=== PATIENT | female | born 1935 | race Caucasian/White ===

== ENCOUNTER 2016-08-18 08:09 | Observation (INO) ==
[2016-08-18 08:49] LABS: Basophils # 0.1 K/mcL (0.0-0.2); Basophils % 0.6 %; Eosinophils # 0.1 K/mcL (0.0-0.6); Eosinophils % 1.4 %; Hematocrit 35.3 % (35.3-44.9); Hemoglobin 11.9 g/dL (11.5-15.4); Immature Granulocytes % 0.3 % (0-4); Mean Corpuscular HGB Conc 33.7 g/dL (31.6-35.5); Mean Corpuscular Volume 94.9 fL (83.0-100.0); Mean Platelet Volume 10.1 fL (9.4-12.4); Monocytes # 0.6 K/mcL (0.0-1.3); Monocytes % 7.9 %; Neutrophils # 5.1 K/mcL (1.6-8.9); Platelet Count 204 K/mcL (140-400); Red Blood Count 3.72 M/mcL (3.82-4.97); Red Cell Distribution Width 12.9 % (11.5-14.5); Segmented Neutrophils % 64.8 %
[2016-08-18 09:03] LABS: BUN/Creatinine Ratio 25 (6-26); Blood Urea Nitrogen 19 mg/dL (7-20); Calcium 9.6 mg/dL (8.6-10.8); Carbon Dioxide 29 mEq/L (19-29); Chloride 103 mEq/L (98-109); Glucose 102 mg/dL (70-99); Osmolality,Calculated 290 (280-300); Sodium 139 mEq/L (136-145); eGFR For African Americans > 60 (> 60); eGFR For Non-African Americans > 60 (> 60)
[2016-08-18] MEDS ORDERED: Aspirin 325 MG TABLET PO ONE (09:19)
[2016-08-18] MEDS ORDERED: Nitroglycerin 1 INCH/GM PACKET TP ONE (09:19)
[2016-08-18 09:23] LABS: Prothrombin Time 11.1 Seconds (9.4-12.1)
[2016-08-18 09:26] LABS: Activated Partial Thrombo Time 33.5 Seconds (26.0-36.0)
--- NOTE | 2016-08-18 09:30 | Emergency Department Note ---
Disposition Clinical Impression: Chest pain Qualifiers: Chest pain type: chest pain due to myocardial ischemia Ischemic chest pain type : other angina pectoris type Qualified Code(s): I20.8 - Other forms of angina pectoris Disposition: Admitted As Inpatient Condition: Fair Referrals: Jena Roland CNP [Primary Care Provider] - Forms: ED Satisfaction Letter Time of Disposition: 09:35 Chest Pain HPI - General Chief Complaint: ED Chest Pain Stated Complaint: Tremendous Chest Pain/seen yesterday Time Seen by Provider: 08/18/16 08:21 Source: patient, family Limitations: no limitations Vital Signs Reviewed: Yes Nursing Notes Reviewed: Yes - History of Present Illness Pt complaint: chest pain Onset (ago): hour(s) Duration: intermittent Onset: during rest, during exertion Pain Location: substernal Severity: severe (Patient used the word "tremendous") Severity scale (1-10): 0 Quality: aching, heaviness Pain Radiation: LUE Improves with: nitroglycerin (Several times took nitroglycerin with alleviation of the discomfort only to have it return short time later) Worsens with: nothing Associated symptoms: Denies: nausea, vomiting, diaphoresis, dyspnea Treatments prior to arrival chest pain: nitroglycerin - Related Data Previous Rx's Medication Instructions Recorded Sulfamethoxazole/Trimeth DS 1 each PO BID #14 tablet 03/31/15 [Bactrim DS] Nitrofurantoin (BID) [Macrobid] 100 mg PO BID #14 capsule 04/12/15 Phenazopyridine [Pyridium] 100 mg PO TID #6 tablet 04/12/15 Allergies Allergy/AdvReac Type Severity Reaction Status Date / Time risperidone Allergy Chest Pain Verified 04/12/15 13:35 All systems ED: reviewed and negative except as stated. Constitutional: Denies: fever, chills ENT ED: Denies: ear pain, throat pain, congestion Cardiovascular: Reports: chest pain. Denies: palpitations Respiratory: Denies: cough, dyspnea Gastrointestinal: Denies: abdominal pain, nausea, vomiting Musculoskeletal: Denies: back pain Integumentary: Denies: rash Neurological: Reports: headache Chest Pain PMH - Past Medical History Medical history: Reports: diabetes, myocardial infarction, thyroid disease Surgical history: Reports: coronary bypass (CABG) Psychiatric history: Reports: anxiety, depression SHAREPOINT ADMINISTRATOR history: Reports: no SHAREPOINT ADMINISTRATOR history - Social History Smoking Status: Never smoker Alcohol use: Reports: none Drug use: Reports: none Physical Exam - General Limitations: no limitations General appearance: alert, in no apparent distress - Head Head exam: atraumatic, normocephalic - Eye Eye exam: Present: normal appearance, PERRL. Absent: scleral icterus, conjunctival injection - ENT ENT exam: normal exam, mucous membranes moist, TM's normal bilaterally - Neck Neck exam: Present: normal inspection, full ROM, trachea midline. Absent: meningismus - Chest Chest inspection: Present: normal inspection, symmetric chest wall rise. Absent : tenderness - Respiratory Respiratory exam: Present: normal lung sounds bilaterally. Absent: respiratory distress, wheezes - Cardiovascular Cardiovascular exam: Present: regular rate, normal rhythm, normal heart sounds - Abdominal Exam Abdominal exam: Present: soft, Non-Tender - Extremities Exam Extremities exam: Present: normal inspection, full ROM, pedal edema (Trace edema but no worse than usual according to patient). Absent: tenderness - Neurological Exam Neurological exam: Present: alert, oriented X3 - Psychiatric Psychiatric exam: Present: normal affect, normal mood - Skin Skin exam: Present: warm, dry. Absent: rash Course Course Narrative: Patient presents with a complaint of chest pain. Her story is concerning in that she has had several episodes of chest discomfort with radiation to the left arm that were alleviated by nitroglycerin. On arrival her EKG looks fine. At this point her labs are back. They are all negative. Chest x-ray was clear. However the story is concerning enough that she is to be admitted for crescendo angina. I will speak to the hospitalist. - Consultations Consultation #1: Dr. Wellington, hospitalist - I discussed case with the hospitalist including patient 's history and presentation and testing results and current condition. He is accepted the patient for permission to the hospitalist. She has a half an inch of Nitropaste and aspirin. She is pain-free at this time. Time: 09:32 Vital Signs Temperature 97.9 F 08/18/16 08:16 Pulse Rate 63 08/18/16 08:16 Respiratory Rate 16 08/18/16 08:16 Blood Pressure 162/87 08/18/16 08:16 O2 Sat by Pulse Oximetry 99 08/18/16 08:16 Temperature 97.9 F 08/18/16 08:16 Pulse Rate 63 08/18/16 08:47 Respiratory Rate 16 08/18/16 08:47 Blood Pressure 142/83 08/18/16 08:47 O2 Sat by Pulse Oximetry 99 08/18/16 08:47 Oxygen Delivery Oxygen Delivery Room Air Chest Pain - Medical Records Medical records reviewed: Yes I reviewed the patient's medical records. - Lab Data Lab results reviewed: Yes I reviewed the patient's lab results. Result diagrams: 08/18/16 08:32 08/18/16 08:32 Lab Results 08/18/16 08/18/16 08/18/16 Range/Units 08:32 08:32 08:32 WBC 7.9 (4.3-11.1) K/mcL RBC 3.72 L (3.82-4.97) M/mcL Hgb 11.9 (11.5-15.4) g/dL Hct 35.3 (35.3-44.9) % MCV 94.9 (83.0-100.0) fL MCH 32.0 (28.0-33.3) pg MCHC 33.7 (31.6-35.5) g/dL RDW 12.9 (11.5-14.5) % Plt Count 204 (140-400) K/mcL MPV 10.1 (9.4-12.4) fL Immature Gran % 0.3 (0-4) % Seg Neutrophils % 64.8 % Lymphocytes % 25.0 % Monocytes % 7.9 % Eosinophils % 1.4 % Basophils % 0.6 % Neutrophils # 5.1 (1.6-8.9) K/mcL Lymphocytes # 2.0 (0.6-4.6) K/mcL Monocytes # 0.6 (0.0-1.3) K/mcL Eosinophils # 0.1 (0.0-0.6) K/mcL Basophils # 0.1 (0.0-0.2) K/mcL PT 11.1 (9.4-12.1) Seconds INR 1.0 APTT 33.5 (26.0-36.0) Seconds Sodium 139 (136-145) mEq/L Potassium 4.0 (3.5-4.5) mEq/L Chloride 103 (98-109) mEq/L Carbon Dioxide 29 (19-29) mEq/L BUN 19 (7-20) mg/dL Creatinine 0.77 (0.57-1.11) mg/dL Est GFR ( Amer) > 60 (> 60) Est GFR (Non-Af Amer) > 60 (> 60) BUN/Creatinine Ratio 25 (6-26) Glucose 102 H (70-99) mg/dL Calculated Osmolality 290 (280-300) Calcium 9.6 (8.6-10.8) mg/dL Troponin I (0-0.03) ng/mL 08/18/16 Range/Units 08:32 WBC (4.3-11.1) K/mcL RBC (3.82-4.97) M/mcL Hgb (11.5-15.4) g/dL Hct (35.3-44.9) % MCV (83.0-100.0) fL MCH (28.0-33.3) pg MCHC (31.6-35.5) g/dL RDW (11.5-14.5) % Plt Count (140-400) K/mcL MPV (9.4-12.4) fL Immature Gran % (0-4) % Seg Neutrophils % % Lymphocytes % % Monocytes % % Eosinophils % % Basophils % % Neutrophils # (1.6-8.9) K/mcL Lymphocytes # (0.6-4.6) K/mcL Monocytes # (0.0-1.3) K/mcL Eosinophils # (0.0-0.6) K/mcL Basophils # (0.0-0.2) K/mcL PT (9.4-12.1) Seconds INR APTT (26.0-36.0) Seconds Sodium (136-145) mEq/L Potassium (3.5-4.5) mEq/L Chloride (98-109) mEq/L Carbon Dioxide (19-29) mEq/L BUN (7-20) mg/dL Creatinine (0.57-1.11) mg/dL Est GFR ( Amer) (> 60) Est GFR (Non-Af Amer) (> 60) BUN/Creatinine Ratio (6-26) Glucose (70-99) mg/dL Calculated Osmolality (280-300) Calcium (8.6-10.8) mg/dL Troponin I 0.00 (0-0.03) ng/mL - Radiology Data Radiology results reviewed: Yes I reviewed the patient's radiology results. - EKG Data EKG attestation: Yes I reviewed and interpreted this EKG. EKG shows normal: sinus rhythm, intervals, ST-T waves Rate: normal [place]/QRS: left axis deviation, RBBB When compared to previous EKG there are: no significant changes Interpretation: no acute changes, unchanged when compared to prior tracing (date ) (August 2013)
[2016-08-18] MEDS ORDERED: Acetaminophen 325 MG TABLET PO PRN (10:35)
[2016-08-18] MEDS ORDERED: Naloxone 0.4 MG/ML INJ IVP PRN (10:35)
--- NOTE | 2016-08-18 10:40 | Internal Med History&Physical ---
Date of Encounter: 08/18/16 Time of Encounter: 10:00 Assessment and Plan (1) Chest pain Current visit: Yes Status: Acute Acute precordial chest pain with some features of angina. We will monitor with telemetry. Trend troponins. Plan for stress test in a.m. if troponins are negative. We will also get 2-D echocardiogram to assess heart function and wall motion. High risk for complications. Qualifiers: Chest pain type: precordial pain Qualified Code(s): R07.2 - Precordial pain (2) Coronary artery disease Current visit: Yes Status: Chronic Patient with history of coronary artery disease status post bypass graft presenting with chest pain. Continue aspirin. Check lipid profile. Has been off beater js due to low blood pressure. Currently heart rate ranging between 50s to 70s. We will monitor with telemetry. If patient continues to have anginal pain, may consider Imdur if unable to tolerate beta js. Qualifiers: Coronary Disease-Associated Artery/Lesion type: bypass graft [place] vs. transplanted heart: [place] heart Associated angina: with other forms of angina Qualified Code(s): I25.708 - Atherosclerosis of coronary artery bypass graft(s), unspecified, with other forms of angina pectoris (3) Essential hypertension Current visit: Yes Status: Chronic Blood pressure is now elevated. We will monitor for now. Consider restarting low dose of amlodipine or beta js to control blood pressure better. (4) Diabetes mellitus, type 2 Current visit: Yes Status: Chronic Diet controlled. We will check A1c. Diabetic diet. Qualifiers: Diabetes mellitus complication status: without complication Diabetes mellitus technician terminal and repeater insulin use: without usp use Qualified Code(s): E11.9 - Type 2 diabetes mellitus without complications Internal Medicine - H&P: HPI Chief complaint: Chest pain Admitted From: Emergency Dept Plans for Post Hospital Care: Home History of present illness: Ms. Boyle is a 81 year old female patient with a history of diabetes mellitus type 2, essential hypertension, coronary artery disease status post CABG 10 years but presented to the ER with complaints of severe chest pain that began this morning. Pain is located in the central part of her chest and was nonradiating initially. She took one nitroglycerin and that seemed to improve the pain but did came back with much more severe today and was radiating down her left arm. As such she decided to come to the ER. She denies any shortness of breath. Denies any palpitations. No fever chills or night sweats. No cough. She had recently been taken off all her blood pressure medications due to low blood pressure. At that time her blood pressure was in the low 90s and 80s. She denies any dizziness or lightheadedness currently. She also has a history of a Parkinsonian disorder which causes her to have tremors with decreased capacity to ambulate. She is not on any medications for this. Past Med Surg Social Fam HX - Past Medical History Attestation: Yes The following information was validated with the patient. Source: patient Medical history: diabetes, myocardial infarction, thyroid disease Psychiatric history: anxiety, depression - Past Surgical History Surgical History: coronary bypass (CABG) - Social History Smoking Status: Never smoker Smokeless Tobacco Status: No Alcohol use: none Drug use: none - Family History Father Living Status: Hx Family Cardiac Disorders: Yes Hx Family Respiratory Disorders: No Hx Family Cancer: Yes (Throat cancer, thyroid cancer) Hx Family GI Disorders: No Hx Family Endocrine Disorder: Yes Hx Family Neuromuscular Disorders: No Hx Family Neurologic Disorders: No Hx Family HEENT Disorders: No Hx Family Autoimmune Disorders: No Internal Medicine - H&P: Meds Amlodipine Besylate 10 mg PO DAILY 08/18/16 [History] Aspirin [Lo-Dose Aspirin EC] 81 mg PO DAILY 08/18/16 [History] Cranberry Conc/Ascorbic Acid [Cranberry Urinary Comf Sftg] 1 each PO DAILY 08/18 [History] Gabapentin [Neurontin] 300 mg PO TID 08/18/16 [History] Ibuprofen [Motrin] 400 mg PO Q6HR PRN 08/18/16 [History] Levothyroxine Sodium [Levoxyl] 75 mcg PO DAILY 08/18/16 [History] Losartan Potassium [Cozaar] 100 mg PO DAILY 08/18/16 [History] Metformin HCl [Metformin HCl ER] 500 mg PO QPM 08/18/16 [History] Metoprolol [Lopressor] 25 mg PO BID 08/18/16 [History] Nitroglycerin [Nitrostat] 0.4 mg SL Q5M 08/18/16 [History] Oxycodone HCl 10 mg PO Q6H PRN 08/18/16 [History] Rivastigmine Tartrate (oral) [Exelon] 1.5 mg PO BID 08/18/16 [History] Timolol Maleate 0.5% [Timolol Maleate 0.5%] 1 drop OP BID 08/18/16 [History] Ubidecarenone [Co Q-10] 200 mg PO DAILY 08/18/16 [History] Allergies carbidopa [From Sinemet] Adverse Reaction (Verified 08/18/16 09:45) Nausea levodopa [From Sinemet] Adverse Reaction (Verified 08/18/16 09:45) Nausea pregabalin [From Lyrica] Adverse Reaction (Verified 08/18/16 09:45) see comment "mental side effects" per patient ranolazine [From Ranexa] Adverse Reaction (Verified 08/18/16 09:45) Palpitations reserpine Adverse Reaction (Verified 08/18/16 09:42) See Comments patient states she feels like she is having a stroke Afikvrk-Tku-Hcy Reductase Inhibitor [Statins] Adverse Reaction (Verified 10:05) Vomiting tapentadol [From Nucynta] Adverse Reaction (Verified 08/18/16 09:45) See Comments patient unsure of reaction All Systems PM: A 10-system review of systems was performed and is negative for pertinent findings except as documented above in the HPI. - Constitutional Constitutional: no chills, no fever(s), no night sweats - EENT Eyes: no change in vision, no discharge, no pain, no photophobia Ears: no ear discharge, no ear pain, no tinnitus Nose, mouth and throat: no dysphagia, no nasal discharge, no neck pain, no sore throat - Cardiovascular Cardiovascular ROS IM: chest pain, no diaphoresis, no dyspnea, no lightheadedness, no palpitations, no syncope - Respiratory Respiratory: no cough, no dyspnea, no wheezing, no excessive phlegm production - Gastrointestinal Gastrointestinal: no abdominal pain, no diarrhea, no hematemesis, no hematochezia, no melena, no nausea, no vomiting - Genitourinary Genitourinary: no change in urinary stream, no dysuria, no flank pain, no hematuria - Musculoskeletal Musculoskeletal ROS IM: no numbness, no tingling - Integumentary Integumentary IM: no rash, no unusual bruising - Neurological Neurological ROS: no confusion, no convulsions, no focal weakness, no numbness, no tingling, no tremor(s) - Hematologic/Lymphatic Hematologic/Lymphatic: no easy bruising - Constitutional Vitals: Temp Pulse Resp BP Pulse Ox 97.9 F 63 18 140/69 97 08/18/16 08:16 08/18/16 09:20 08/18/16 09:20 08/18/16 09:20 08/18/16 09:20 General appearance: Present: cooperative, mild distress, A&O X 3, answers questions appropriately - Eye Eye exam: Present: EOMI, PERRL, conjuntiva pink, sclera anicteric - Neck Neck exam general surgery: Present: supple, trachea midline. Absent: lymphadenopathy - Respiratory Respiratory exam: Present: CTAB. Absent: accessory muscle use, rales, rhonchi, wheezes - Cardiovascular Cardiovascular exam: Present: RRR, +S1, +S2, systolic murmur. Absent: diastolic murmur, gallop, rubs - GI/Abdominal GI/Abdominal exam: Present: normal bowel sounds, soft, no peritoneal signs. Absent: distended, tenderness - Extremities Exam Extremities exam: Present: warm, radial pulses palpable and symetrical. Absent : calf tenderness, cyanotic, pedal edema - Neurological Exam Neurological exam: Present: alert, CN II-XII intact, oriented X3, no focal deficits. Absent: facial droop, speech deficit - Skin Skin exam: Present: dry, intact Internal Med - H&P Results - Labs CBC & Chem 7: 08/18/16 08:32 08/18/16 08:32 - EKG Data -: EKG Interpreted by Myself EKG shows normal: sinus rhythm - EKG Data EKG comments: 08/18/16 10:41 Right bundle-branch block - Impressions Impressions Chest X-Ray 08/18/16 08:19 IMPRESSION: No acute cardiopulmonary disease. D/ / Duarte Wood MD / Duarte Wood MD Interpreting Provider: Duarte Wood MD
[2016-08-18] MEDS ORDERED: *HR* OxyCODONE Immed Rel 5 MG TABLET PO PRN (10:46)
[2016-08-18] MEDS ORDERED: Isosorbide MONOnitrate (24 HR) 30 MG TAB.ER.24H PO SCH (11:00)
[2016-08-18] MEDS ORDERED: Nitroglycerin 0.4 MG TAB.SUBL SL PRN (11:00)
[2016-08-18] MEDS: Gabapentin 300 MG CAPSULE PO SCH ×2 (15:07→21:45)
--- NOTE | 2016-08-18 17:48 | Electrocardiograph Report ---
[place] [id number] Test Date: 2016-08-18 Pat Name: Rohini Boyle Department: 104 Room: [facility] Gender: F Ingredient Scaler: SHAWNA : 1935 Requested By: Desean Ramos Order Number: [id number] Reading MD: Desean Moncada Measurements Intervals [place] Rate: 64 P: 58 [place]: 172 QRS: -42 QRSD: 107 T: 56 QT: 385 QTc: 395 Interpretive Statements SINUS RHYTHM WITH SINUS ARRHYTHMIA MARKED LEFT AXIS DEVIATION INCOMPLETE RIGHT BUNDLE BRANCH BLOCK Electronically Signed On 08-18-2016 17:47:10 EDT by Desean Moncada
[2016-08-18] MEDS: Rivastigmine Tartrate (oral) 1.5 MG CAPSULE PO SCH (21:44)
[2016-08-19] MEDS ORDERED: Regadenoson 0.4 MG/5 ML SYRINGE IVP ONE (06:16)
[2016-08-19 06:39] LABS: Hemoglobin A1C 5.4 %
[2016-08-19 06:44] LABS: Chol/HDL Ratio 3.7 (0-4.9)
[2016-08-19 07:05] LABS: Thyroid Stimulating Hormone 0.558 mcIU/mL (0.350-4.840)
[2016-08-19] MEDS: Rivastigmine Tartrate (oral) 1.5 MG CAPSULE PO SCH (08:23)
[2016-08-19] MEDS: Gabapentin 300 MG CAPSULE PO SCH (08:24)
[2016-08-19] MEDS ORDERED: Aspirin Enteric Coated 81 MG Tablet PO SCH (09:00)
[2016-08-19 11:10] VITALS: BP 136/71
--- NOTE | 2016-08-19 12:18 | Nuclear Medicine Stress Report ---
Regadenoson Nuclear Stress Name: Rohini Boyle Date of Study: 08/19/2016 Date: 1935 Ht: 64.0 in Medical Record#: [id number] Age: 81 Wt: 121.0 lb Gender: Female Order #: [id number] Location: [facility] Room: 2N0 Supervising Provider: Darrin Scott CNP Reading Physician: Herrera Joya DO, RACQUEL CASTREJON FASNC Ordering Physician: Chago Jerez MD Primary Care Physician: Jena Roland CNP Stress Technologist: Jong Cuadra, FIBERGLASS QUALITY TECHNICIAN, CPFT Gang Vibrator Operator: Srinath Bowser Indications: Chest Pain Impression: Pharmacologic stress ECG is negative for ischemia at level of heart rate achieved. Gated EF > 70%. Perfusion imaging was negative for ischemia or infarct. History: Hypertension Diabetes Hypercholesteremia History of Coronary Artery Bypass Surgery Stress Test Summary: Stress Test Type: Pharmacologic Regadenoson 0.4mg/5ml given IV Baseline Information: Initial Heart Rate: 61 Blood Pressure: 120/74 Stress Information: Stress Time: 4 min 00 sec Test Terminated Due to (primary): As per protocol Maximum Blood Pressure: 108/64 Maximum Heart Rate: 88 Percent Maximum Heart Rate Achieved: 62 Double Product: 9504 METS Reached: 1 Symptoms: Shortness of breath, Headache Nuclear Summary: SPECT myocardial perfusion imaging using Tc99m Sestamibi given intravenously was performed at rest and following cardiac stress testing. The resting images were obtained following initial dose of 11.6 mCi. Following stress an additional dose of 35 mCi was given at peak exercise or 30 seconds post regadenoson infusion. Medication Given: Time Medication Dose Units Route Findings: Stress Note * Resting ECG demonstrated normal sinus rhythm. * No baseline arrhythmias were noted. * Pharmacologic stress ECG is negative for ischemia at level of heart rate achieved. * No arrhythmias were noted during stress. * Patient had no chest pain during stress. * Normal hemodynamic responses to pharmacologic stress. Study Quality * Study quality is good. Gated EF > 70% * Gated EF > 70%. Left Ventricle * The left ventricle is not dilated. * LVEDV = 54 mL. NORMALS * Normal wall motion. * Normal segmental perfusion in stress. * Normal Segmental Perfusion in rest. TID * No evidence of transient ischemic dilatation. * TID ratio = 1.04. Lung Uptake * There is no evidence of increase lung uptake. Updated by Herrera Joya DO, CASH, RACQUEL, DOMENIC on 08/19/2016 12:11:57 PM electronically signed on 08/19/2016 12:12:56 PM with status of Final
--- NOTE | 2016-08-19 14:37 | Discharge Summary ---
Date of Encounter: 08/19/16 Time of Encounter: 14:34 - Discharge Diagnosis (1) Chest pain Priority: Primary Status: Acute Comments: Stress test did not show any cardiac ischemia Qualifiers: Chest pain type: precordial pain Qualified Code(s): R07.2 - Precordial pain (2) Coronary artery disease Priority: Secondary Status: Chronic Qualifiers: Coronary Disease-Associated Artery/Lesion type: bypass graft [place] vs. transplanted heart: [place] heart Associated angina: with other forms of angina Qualified Code(s): I25.708 - Atherosclerosis of coronary artery bypass graft(s), unspecified, with other forms of angina pectoris (3) Essential hypertension Priority: Secondary Status: Chronic (4) Diabetes mellitus, type 2 Priority: Secondary Status: Chronic Comments: Hemoglobin A1c is 5.4 Qualifiers: Diabetes mellitus complication status: without complication Diabetes mellitus skilled nursing insulin use: without termite treater use Qualified Code(s): E11.9 - Type 2 diabetes mellitus without complications - Discharge Medications Home Medications: Amlodipine Besylate 10 mg PO DAILY 08/18/16 [History] Aspirin [Lo-Dose Aspirin EC] 81 mg PO DAILY 08/18/16 [History] Cranberry Conc/Ascorbic Acid [Cranberry Urinary Comfort Sfgl] 1 each PO DAILY [History] Gabapentin [Neurontin] 300 mg PO TID 08/18/16 [History] Ibuprofen [Motrin] 400 mg PO Q6HR PRN 08/18/16 [History] Levothyroxine Sodium [Levoxyl] 75 mcg PO DAILY 08/18/16 [History] Losartan Potassium [Cozaar] 100 mg PO DAILY 08/18/16 [History] Metformin HCl [Metformin HCl ER] 500 mg PO QPM 08/18/16 [History] Metoprolol [Lopressor] 25 mg PO BID 08/18/16 [History] Nitroglycerin [Nitrostat] 0.4 mg SL Q5M 08/18/16 [History] Oxycodone HCl 10 mg PO Q6H PRN 08/18/16 [History] Rivastigmine Tartrate (oral) [Exelon] 1.5 mg PO BID 08/18/16 [History] Timolol Maleate 0.5% 1 drop OP BID 08/18/16 [History] Ubidecarenone [Co Q-10] 200 mg PO DAILY 08/18/16 [History] Allergies/Adverse Reactions: Allergies Cfkatdz-Xrd-Olo Reductase Inhibitor [Statins] Allergy (Intermediate, Verified 15:33) Vomiting ceci flavor Allergy (Verified 08/18/16 15:33) Rash carbidopa [From Sinemet] Adverse Reaction (Verified 08/18/16 09:45) Nausea levodopa [From Sinemet] Adverse Reaction (Verified 08/18/16 09:45) Nausea pregabalin [From Lyrica] Adverse Reaction (Verified 08/18/16 09:45) see comment "mental side effects" per patient ranolazine [From Ranexa] Adverse Reaction (Verified 08/18/16 09:45) Palpitations reserpine Adverse Reaction (Verified 08/18/16 09:42) See Comments patient states she feels like she is having a stroke tapentadol [From Nucynta] Adverse Reaction (Verified 08/18/16 09:45) See Comments patient unsure of reaction Procedures/tests Complete & Pending: Procedures Performed prior 72 hours Category Date Time Status NM jo ann perf SPECT multi [NM] Routine Exams 08/18/16 10:36 Taken EV echocardiogram Routine Y 08/18/16 10:36 Completed SP pharm nuclear stress Routine Y 08/19/16 10:36 Completed Date of admission: 08/18/16 09:58 Primary care physician: Jena Roland, Consults: 08/18/16 11:32 Consult to Nutrition [CONS] Routine Comment: Consulting Provider: NUTRITION Reason for Dietary Consult: Other - Patient Status Disposition: Home, Self-Care Condition: Fair - Discharge Instructions Follow Up With: Jena Roland CNP [Primary Care Provider] - 09/05/16 1:00 pm Additional Instructions: Follow with primary care physician within the next 7 days, continue taking aspirin. - Diet and Activity Activity: increase activity as tolerated Diet: low fat, low cholesterol Hospital course: Ms. Boyle is a 81 year old female with a history of diabetes mellitus type 2 not insulin-dependent, essential hypertension, coronary artery disease status post CABG 10 years ago. She also has a history of a Parkinsonian disorder which causes her to have tremors with decreased capacity to ambulate. She is not on any medications for this. Presented to the ER with complaints of severe chest pain that began in the morning. Pain is located in the central part of her chest and was nonradiating initially. She took one nitroglycerin and that seemed to improve the pain but did came back with much more severe and was radiating down her left arm. She decided to come to the ER. She denies any shortness of breath. Denies any palpitations. No fever chills or night sweats. No cough. EKG was unremarkable, troponins were negative, stress test did not show any ischemia. Stable to be discharged - Time Spent with Patient Total time spent providing and/or coordinating discharge services: Greater than 30 minutes (40 min) - Constitutional Vitals: Temp Pulse Resp BP Pulse Ox 98.0 F 62 18 136/71 99 08/19/16 11:07 08/19/16 11:07 08/19/16 11:07 08/19/16 11:07 08/19/16 11:07 General appearance: Present: cooperative, mild distress, A&O X 3, answers questions appropriately - Head Head exam: Present: atraumatic, normocephalic - Eye Eye exam: Present: PERRL, conjuntiva pink, sclera anicteric Pupils: Present: PERRL - Neck Neck exam general surgery: Present: supple, trachea midline. Absent: lymphadenopathy - Respiratory Respiratory exam: Present: CTAB. Absent: accessory muscle use, rales, rhonchi, wheezes - Cardiovascular Cardiovascular exam: Present: RRR, +S1, +S2. Absent: diastolic murmur, gallop, rubs, systolic murmur - GI/Abdominal GI/Abdominal exam: Present: normal bowel sounds, soft, no peritoneal signs. Absent: distended, tenderness - Extremities Exam Extremities exam: Present: warm, radial pulses palpable and symetrical. Absent : calf tenderness, cyanotic, pedal edema - Neurological Exam Neurological exam: Present: CN II-XII intact, oriented X3, no focal deficits. Absent: pronater drift, facial droop, speech deficit Additional comments: Parkinsonian tremors - Skin Skin exam: Present: dry, intact
== END 2016-08-19 16:00 | disposition home health service (06) ==
LOC: EMEROO 08:09 → 2NENU 08:09
PROVIDERS: ADMIT Internal Medicine; ATTEND Internal Medicine

== ENCOUNTER 2017-11-15 07:43 | Inpatient (IN) ==
[2017-11-15] MEDS ORDERED: Lidocaine -MPF 2% 2 ML VIAL ONE (08:02)
[2017-11-15] MEDS ORDERED: Ondansetron 4 MG/2 ML VIAL ONE (08:02)
[2017-11-15] MEDS ORDERED: *HR* Midazolam HCl 2 MG/2 ML VIAL ONE (08:02)
[2017-11-15] MEDS ORDERED: Dexamethasone 4 MG/ML VIAL ONE (08:02)
[2017-11-15] MEDS ORDERED: *HR* FentaNYL (PF) 100 MCG/2 ML VIAL ONE (08:02)
[2017-11-15] MEDS ORDERED: Lidocaine -MPF 4% 5 ML AMPUL ONE (08:03)
[2017-11-15] MEDS ORDERED: *HR* Propofol 200 MG/20 ML VIAL IVP ONE (08:03)
[2017-11-15] MEDS ORDERED: *HR* Succinylcholine 200 MG/10 ML VIAL IVP ONE (08:03)
[2017-11-15] MEDS ORDERED: *HR* Rocuronium Bromide 50 MG/5 ML VIAL ONE (08:03)
[2017-11-15] MEDS ORDERED: EPHEDrine 50 MG/ML VIAL ONE ×2 (08:07→10:05)
[2017-11-15] MEDS ORDERED: CeFAZolin Syr 2,000MG/20 ML 2,000 MG/20 ML SYRINGE IVPB ONE (08:37)
--- NOTE | 2017-11-15 08:42 | History & Physical Report ---
Date of Encounter: 11/15/17 Time of Encounter: 08:42 24 Hour HP Update - Instructions Instructions: If the History and Physical is less than 30 days old and was completed prior to A.M. admission and or procedure and has NOT been updated on calendar day of procedure please complete this update prior to performing procedure. - Update Patient reports changes in Medical Condition: No Changes in examination, assessment, or condition: No Changes in Medication: No Preop tests/diagnostics Reviewed: Yes Surgery Remains Indicated: Yes Consent for Planned Operative Procedure(s) Verified: Yes
--- NOTE | 2017-11-15 08:42 | Anesthesia Evaluation PreOp ---
Date of Encounter: 11/15/17 Time of Encounter: 08:40 - Past History Planned Operation: ORIF left distal humerus Cardiac History: HTN, Cardiac Surgery (2006) Pulmonary History: Denies Any Significant HX NURSE INFORMATICS EDUCATOR History: CVA (no residual), Other (glaucoma, Parkinsons Ds uses walker) Other Medical History: Thyroid (hypo), GERD Anesthesia History: No Prior Anesthetic Complications, Past Anesthesia (CABG, FERN, tonsils,appy) Alcohol Use: none Drug use: none Medications and Allergies Aspirin [Lo-Dose Aspirin EC] 81 mg PO DAILY 08/18/16 [History] Cranberry Conc/Ascorbic Acid [Cranberry Urinary Comfort Sfgl] 1 each PO DAILY [History] Gabapentin [Neurontin] 300 mg PO TID 08/18/16 [History] Levothyroxine Sodium [Levoxyl] 75 mcg PO DAILY 08/18/16 [History] Losartan Potassium [Cozaar] 50 mg PO DAILY 08/18/16 [History] Metformin HCl [Metformin HCl ER] 500 mg PO QPM 08/18/16 [History] Nitroglycerin [Nitrostat] 0.4 mg SL Q5M 08/18/16 [History] Rivastigmine Tartrate (oral) [Exelon] 1.5 mg PO BID 08/18/16 [History] DiphenhydraMINE [Benadryl] 25 mg PO Q6HR PRN 05/11/17 [History] Ergocalciferol (VITAMIN D2) [Vitamin D] 400 unit PO DAILY 11/15/17 [History] OxyCODONE Immed Rel [Roxicodone 10 MG] 10 mg PO BID PRN 11/15/17 [History] 3 Allergy/AdvReac Type Severity Reaction Status Date / Time Igpqvcm-Eqi-Sdt Reductase Allergy Intermediate Vomiting Verified 11/15/17 08:51 Inhibitor [Statins] ceci flavor Allergy Rash Verified 11/15/17 08:51 carbidopa [From Sinemet] AdvReac Nausea Verified 11/15/17 08:51 levodopa [From Sinemet] AdvReac Nausea Verified 11/15/17 08:51 pregabalin [From Lyrica] AdvReac see comment Verified 11/15/17 08:51 ranolazine [From Ranexa] AdvReac Palpitation Verified 11/15/17 08:51 s reserpine AdvReac See Verified 11/15/17 08:51 Comments tapentadol [From Nucynta] AdvReac See Verified 11/15/17 08:51 Comments - Meds/Allergy Pre-op Review Medications Reviewed: Yes Allergies Reviewed: Yes Beta Blockers on Current Med List: No Anesthesia Results - Labs Laboratory Tests 11/13/17 11/13/17 11:52 11:52 Hgb 11.1 L Hct 33.2 L Plt Count 247 Sodium 140 Potassium 4.2 BUN 24 H Creatinine 0.88 - Imaging EKG: report reviewed (SINUS RHYTHM MARKED LEFT AXIS DEVIATION PATTERN CONSISTENT WITH PULMONARY DISEASE) Additional studies: stress test: Impression: Pharmacologic stress ECG is negative for ischemia at level of heart rate achieved. Gated EF > 70%. Perfusion imaging was negative for ischemia or infarct. Echo: Impressions: LVEF 55-60%. Normal LV chamber size, wall thickness and function. Mild left ventricular diastolic dysfunction. Atypical septal motion consistent with post-operative status. Normal right ventricular structure and function. Mild tricuspid regurgitation. No pulmonary hypertension. Mild pulmonic regurgitation. Anesthesia Exam - HEENT Pupil (Motor): EOMI Mallampati: III Teeth: Normal, Missing Oral Opening: Greater than 3 - NURSE INFORMATICS EDUCATOR LOC: Oriented NURSE INFORMATICS EDUCATOR Motor: Normal RUE, Normal LUE, Normal RLE, Normal LLE, Normal Face NURSE INFORMATICS EDUCATOR Sensory: Normal: RUE, LUE, RLE, LLE, Face - Cardiac Rhythm: Regular Murmur: None - Pulmonary Breath Sounds: bilateral Clear Respiratory Effort: Symmetrical Anesthesia Assess/Plan ASA Score: 3 (CAD, HTN, Parkinsons, age) Modified [place] Scale for Level of Consciousness: Cooperative, oriented, and tranquil Anesthetic Plan: General (with block) Monitoring Plan: Standard Monitors Recovery Plan: PACU (agrees to GA with block)
[2017-11-15] MEDS ORDERED: Ringers Solution, Lactated 1,000 ML IVC SCH ×2 (08:45→09:15)
[2017-11-15] MEDS ORDERED: ROPIVACAINE HCL/PF 0.5% 30 ML VIAL ONE (08:57)
[2017-11-15] MEDS ORDERED: Bupivacaine/Clonidine Syringe 1 EACH SYRINGE ONE (08:57)
[2017-11-15] MEDS ORDERED: *HR* Labetalol 20 MG/4 ML SYRINGE IVP PRN (09:09)
[2017-11-15] MEDS ORDERED: *HR* Meperidine 25 MG/ML SYRINGE IVP PRN (09:09)
[2017-11-15] MEDS ORDERED: *HR* Morphine 2 MG/ML SYRINGE IVP PRN (09:09)
[2017-11-15] MEDS ORDERED: Albuterol 2.5 MG/3 ML NEBULIZER IH ONE (09:09)
[2017-11-15] MEDS ORDERED: Naloxone 0.4 MG/ML INJ IVP PRN ×2 (09:09→15:17)
[2017-11-15] MEDS ORDERED: Ondansetron 4 MG/2 ML VIAL IVP ONE (09:09)
[2017-11-15] MEDS ORDERED: *HR* Promethazine 25 MG/ML VIAL IVP PRN (09:09)
[2017-11-15] MEDS ORDERED: *HR* PHENYLEPHRINE 1,000 MCG/10 ML SYRINGE IVP ONE (09:53)
--- NOTE | 2017-11-15 11:10 | Anesthesia Procedures ---
Date of Encounter: 11/15/17 Time of Encounter: 11:08 Procedures: Anesthesia - Nerve Block Procedure Date: 11/15/17 Time: 11:08 Allergies/Adv Reactions: multiple. see chart Pre-op Diagnosis: left distal humerus fracture Surgical Procedure: left distal humerus orif Checklist: Correct Patient Identifier, Correct procedure, History checked Correct side: Left Blood Thinner: No Monitor Applied: EKG, BP, Pulse Oximetry Supplemental Oxygen via Nasal Cannula (L/min): 2 Sedation: Versed (mg): 1 Sedation: Fentanyl (mcg): 50 Indication: Post Op Analgesia (request per surgeon for post op pain control) Pre-op Neuro Deficits: No Block Type: Supraclavicular, Other (icb) Catheter placed: No Sterile Technique: Yes Ultrasound used: Yes Anatomy identified: Yes Visual spread of Local: Yes Neuro Stimulation: No Blood on Needle Aspiration: No Smooth Injection of Local: Yes Pain with Injection of Local: No Prep: Chlorhexadine Needle: 22 x 50 mm Stimuplex Local: 0.25% Bupivicaine w/Clonidine 20 mcg/cc (for icb 8ml), Ropivacaine (0.5%) Volume (cc): 30 Number of Attempts: 1 Complications: None/effective block Vitals: Vital Signs/O2 Sat/Glucose, Most Current Temp Pulse Resp BP Pulse Ox 11/15/17 09:30 65 18 139/68 97 11/15/17 09:04 98.8 F 69 18 144/76 100 Comments: pt tolerated procedure well. no complications. vss.
--- NOTE | 2017-11-15 11:30 | Anesthesia Procedures ---
Date of Encounter: 11/15/17 Time of Encounter: 10:40 Procedures: Anesthesia - Central Line Placement Right SC Time out performed: Yes Patient placed on monitor/pulse ox: Yes prep: mask, gown, gloves Central line prep: Chlorhexidine scrub, sterile drapes applied Ultrasound used for placement: No Technique: Radhadinger Size / Length: 7 Fr / 16 cm Post procedure: sutured in place, good blood return, all ports aspirated, flushed, capped, sterile dressing applied Post procedure x-ray: tip of catheter in good position, no pneumothorax seen Patient tolerated procedure: well, no complications Complications: none Comments: Patient was difficult iv placement, the iv placed in SDS infiltrated in the OR after going to sleep. A new 20ga iv placed in right hand in OR but infiltrated after patient turned prone. 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 Decision to place right subclavian. This site chosen because of lower incidence of infection and comfort, also likely to work better than IJ in the prone position. Placed with out US, attempt x 2 due to difficulty advancing wire, not blood return. Wire placed without arrythmias, dilated easily, catheter placed easily and aspirated easily. Sutured in place. Antibiotic patch and op-site placed. CXR showed good placement and no pneumothorax by my read.
[2017-11-15] MEDS ORDERED: Ondansetron 4 MG/2 ML VIAL IVP PRN (15:17)
[2017-11-15] MEDS ORDERED: Nitroglycerin 0.4 MG TAB.SUBL SL SCH (15:17)
[2017-11-15] MEDS: Gabapentin 300 MG CAPSULE PO SCH ×2 (16:53→21:28)
--- NOTE | 2017-11-15 17:14 | Orthopedic Operative Note ---
Date of procedure: 11/15/17 Procedure: OPERATIVE REPORT SURGEON: Ramírez Nunn MD PREOPERATIVE DIAGNOSIS: Left distal humerus fracture POSTOPERATIVE DIAGNOSIS: Left distal humerus fracture PROCEDURE: Open reduction and internal fixation of the left distal humerus ANESTHESIA: Gen. anesthesia and supraclavicular block IMPLANTS: Synthes extra-articular distal humerus plate PREOPERATIVE NOTE AND INDICATIONS: This patient is a female of 82 years sustained an injury to her left upper extremity. This resulted in an extra-articular distal humerus fracture. Treatment options were discussed and the recommendation was for open reduction and internal fixation in order to reduce, stabilize, and improve function to the left upper extremity. The surgical plan was discussed with the patient. The risks, benefits, alternatives, and potential complications of this procedure were discussed with the patient including injury to veins, arteries, nerves, tendons, ligaments, and bone. Also discussed were the risks of infection, bleeding, pain, blood clots, the possible need for a blood transfusion, the possible need for further procedures, heart attack, stroke, and . Additional risks include malunion , nonunion, hardware failure, and wrist drop from radial nerve palsy. All of this was explained in simple terms, and the patient verbalized understanding and wished to proceed. Consent was given to proceed with surgery. PROCEDURE: The patient was seen in the preoperative holding area where the identify and the consent were confirmed. The left upper extremity was marked. Final questions were answered. A huddle was performed with the patient and all vital surgical team members confirming patient identity, the correct procedure, and the correct operative site. Gen. anesthesia was administered. The patient was placed prone on the operating room table and all bony prominences were protected. The operative extremity was prepped and draped in the usual sterile fashion. A surgical time out was performed immediately preceding the incision with all personnel in the operating room to confirm patient identity, the correct operative site and extremity, correct radiographic studies, availability of appropriate surgical equipment, and agreement on the planned procedure. An extensile longitudinal incision was made and dissection proceeded carefully through the subcutaneous tissue. Full-thickness flaps were elevated and the lateral flap was carried to the lateral epicondylar region. The lateral border of the triceps was identified and carefully elevated off the lateral intermuscular septum. Distally the triceps was from the [place] is sharply and this did expose the distal lateral portion of the distal humerus. Dissection proceeded proximally on the lateral side of the triceps which was elevated and the radial nerve was identified as it pierced the lateral intermuscular septum and into the anterior compartment. A small branch of the deep brachial artery was ligated with a clip. The long and lateral heads of the triceps were split and dissection was carried down to the humerus carefully protecting the radial nerve which was dissected in its entirety from the posterior aspect of the humerus to the lateral intermuscular septum and was carefully protected. The fracture was identified and the hematoma was evacuated and irrigated. The fracture was reduced anatomically, clamped, and the definitive plate was placed and fixed proximally with a combination of cortical and locking screws distally with locking screws. Despite her osteopenia, fixation was felt to be quite good. The wound was copiously irrigated and the split in the triceps was repaired with 0 Vicryl stitches followed by the skin with 0 Vicryl, 3-0 Vicryl, and pawel. A soft, sterile dressing was applied followed by posterior long-arm splint. The patient was placed back supine on her bed. The instrument, sponge, and needle counts were correct after wound closure. POST OPERATIVE PLAN: 2 weeks for postoperative x-rays and staple removal. Motion versus 2 weeks of continued immobilization depending on appearance of x-rays and symptoms. Was there an respiratory therapy assistant present: No Estimated blood loss (cc): 150
[2017-11-15] MEDS: Ringers Solution, Lactated 1,000 ML IVC SCH (18:45)
[2017-11-15] MEDS: *HR* HYDROcodone/Acet 5/325 mg TABLET PO PRN (18:58)
[2017-11-15] MEDS ORDERED: *HR* Dextrose 50 % in Water (Syg) 50 ML SYRINGE IVP PRN (20:40)
[2017-11-15] MEDS ORDERED: D5% in Water 1,000 ML IVC PRN (20:40)
[2017-11-15] MEDS ORDERED: Dextrose Gel 15 GM/37.5 ML TUBE PO PRN ×2 (20:40)
[2017-11-15] MEDS ORDERED: *HR* Metformin 500 MG TABLET PO SCH (21:00)
[2017-11-15] MEDS: Insulin LISPRO 300 UNITS/3 ML VIAL SQ SCH (21:28)
[2017-11-15] MEDS: *HR* OxyCODONE Immed Rel 5 MG TABLET PO PRN (21:28)
[2017-11-15] MEDS: Rivastigmine Tartrate (oral) 1.5 MG CAPSULE PO SCH (21:28)
[2017-11-16 04:29] LABS: Hematocrit 28.1 % (35.3-44.9); Mean Corpuscular HGB Conc 33.8 g/dL (31.6-35.5); Mean Corpuscular Volume 94.6 fL (83.0-100.0); Mean Platelet Volume 10.3 fL (9.4-12.4); Platelet Count 251 K/mcL (140-400); Red Blood Count 2.97 M/mcL (3.82-4.97); Red Cell Distribution Width 13.4 % (11.5-14.5)
[2017-11-16 04:32] LABS: Hemoglobin 9.5 g/dL (11.5-15.4)
[2017-11-16 04:47] LABS: BUN/Creatinine Ratio 25 (6-26); Blood Urea Nitrogen 23 mg/dL (8-23); Calcium 8.3 mg/dL (8.6-10.3); Carbon Dioxide 27 mEq/L (23-29); Chloride 105 mEq/L (98-107); Glucose 130 mg/dL (70-105); Osmolality,Calculated 291 (280-300); Potassium 4.8 mEq/L (3.5-5.1); Sodium 138 mEq/L (136-145); eGFR For Non-African Americans 59 (> 60)
[2017-11-16] MEDS: *HR* OxyCODONE Immed Rel 5 MG TABLET PO PRN (05:24)
--- NOTE | 2017-11-16 07:12 | Orthopedics Progress Note ---
Date of Encounter: 11/16/17 Time of Encounter: 07:10 Subjective Interval history: S: The patient is resting in bed comfortably. The block is wearing off and pain is well-controlled Low urine output noted O: Afebrile on the vital signs are stable Left upper extremity and posterior long-arm splint Mild puffiness to the digits She can grossly flex and extend the digits; radial nerve function intact Fingers are grossly sensate and well-perfused Normal creatinine Hemoglobin above 9 A: Post open reduction and internal fixation of the left distal humerus P: Orthopedically stable for discharge and PT recommend alf facility however patient adamantly declines and therefore we will set up home with home health care and PT. I will place a consult to the hospitalist regarding low urine output though vital signs are stable and creatinine is within the normal range. Consult director of social services to help set up this position, home with home health care PT/OT, mobilized when able, nonweightbearing to the left upper extremity, digital motion exercises to the left upper extremity. Objective Vital signs: Vital Signs Temp Pulse Resp BP Pulse Ox 11/16/17 04:23 98.1 F 90 16 132/67 96 11/15/17 23:43 97.9 F 92 16 95/67 96 11/15/17 20:52 98.3 F 94 16 117/79 97 11/15/17 18:30 98.4 F 99 16 116/78 97 11/15/17 17:30 98.6 F 94 16 118/74 98 11/15/17 16:30 97.7 F 91 15 116/87 96 11/15/17 16:00 97.5 F L 89 15 113/63 97 11/15/17 15:30 97.4 F L 88 16 127/78 98 11/15/17 14:53 98.0 F 84 16 124/70 97 11/15/17 14:38 82 16 128/72 96 11/15/17 14:23 98.2 F 84 18 134/90 98 11/15/17 14:13 82 16 128/71 97 11/15/17 14:03 79 16 137/67 97 11/15/17 13:53 97.6 F 80 16 135/77 98 11/15/17 13:43 75 14 131/62 98 11/15/17 13:33 78 16 141/73 99 11/15/17 13:23 97.9 F 77 16 137/78 100 11/15/17 09:30 65 18 139/68 97 11/15/17 09:04 98.8 F 69 18 144/76 100 Intake and Output 11/15/17 11/15/17 11/16/17 15:59 23:59 07:59 Intake Total 50 / 50 100 / 100 Output Total 700 / 700 300 / 300 Balance -650 / -650 100 / 100 -300 / -300 Intake: IV Fluids 100 / 100 Ancef 2,000 MG In 0.9 % Sodium 100 / 100 Chloride 100 ML @ 200 mls/hr IVPB Q8H [facility] Rx#:[id number] Oral 50 / 50 Output: Estimated Blood Loss 150 / 150 Urine Amount (Catheter) 550 / 550 Catheter 300 / 300 Urethral (Dang) 25 / 25 Other: Weight 64.41 kg 64.3 kg Blood Glucose* 124 211 Patient Weight 11/16/17 23:59 Weight 64.3 kg - Labs CBC & BMP: 11/16/17 04:05 11/16/17 04:05 Labs: Abnormal lab results WBC 13.5 K/mcL (4.3-11.1) H 11/16/17 04:05 RBC 2.97 M/mcL (3.82-4.97) L 11/16/17 04:05 Hgb 9.5 g/dL (11.5-15.4) L D 11/16/17 04:05 Hct 28.1 % (35.3-44.9) L 11/16/17 04:05 Est GFR (Non-Af Amer) 59 (> 60) L 11/16/17 04:05 Glucose 130 mg/dL (70-105) H 11/16/17 04:05 Calcium 8.3 mg/dL (8.6-10.3) L 11/16/17 04:05 Consult Discharge Plan - Plan Referrals: Jena Roland, MARY [Primary Care Provider] -
[2017-11-16] MEDS ORDERED: 0.9 % Sodium Chloride 500 ML IVC ONE ×2 (08:02→15:31)
--- NOTE | 2017-11-16 08:48 | Internal Medicine Consult Note ---
Date of Encounter: 11/16/17 Time of Encounter: 08:47 - Assessment and plan (1) Decreased urine output Current Visit: Yes Status: Acute Assessment and plan: - Decreased urine output of about 300 mL or past 12 hours strictly monitored by Bolton catheter which was removed this morning. - episodes of hypotension noted around midnight. No complications noted intraoperatively. 1 50 mL of blood loss. - Patient currently on LR at 75 mL an hour. Received about 1 L LR until now. Second bag to be started soon. - We will give patient 500 mL of normal saline bolus. continue LR at 75 cc/hr - Obtained urine studies including osmolality, urine sodium, urine urea, urine analysis. Also obtain blood osmolality. - Echo from 2017 with EF of 50-60. Mild diastolic dysfunction. Pharmacologic stress test negative for ischemia at that time. Will obtain f/u ECHO. - Patient had bolton until now which was removed. Monitor strict ins and outs - Avoid nephrotoxic medication. Losartan and metformin put on hold. - Monitor patient response to above interventions. Monitor renal function daily. - Possibility of prerenal versus ATN. Postrenal appears unlikely. We will hold imaging for now (2) Supracondylar fracture of humerus Current Visit: No Status: Acute Assessment and plan: - Status post day 1 left distal humerus ORIF - Management per Ortho. Pain currently being controlled with [place] and oxycodone - Social consult and physical therapy consult already in place. Qualifiers: Encounter type: initial encounter Fracture type: closed Laterality: left Qualified Code(s): S42.412A - Displaced simple supracondylar fracture without intercondylar fracture of left humerus, initial encounter for closed fracture (3) Diabetes mellitus, type 2 Current Visit: No Status: Chronic Assessment and plan: - We will hold home metformin. We will manage diabetes with insulin sliding scale and Accu-Cheks. Qualifiers: Diabetes mellitus medical terminologist insulin use: without jail use Diabetes mellitus complication status: without complication Qualified Code(s): E11.9 - Type 2 diabetes mellitus without complications (4) Essential hypertension Current Visit: No Status: Chronic Assessment and plan: - Blood pressure currently stable. Episodes of low blood pressure noted late- night yesterday. Stable afterwards. - We will hold home losartan given a decreased urine output. Will monitor for now. (5) DVT prophylaxis Current Visit: Yes Status: Acute Assessment and plan: On Lovenox - Time Spent With Patient Total time spent is greater than 50% in coordination of care (as documented) at patient's floor/unit and/or counseling patient: Internal Medicine - CN: HPI - Data of Consult Patient: new to practice Requesting Physician: Ramírez Nunn MD - Consult Narrative Reason for consult: Decreased urine output History of present illness: Ms. Boyle is a 82 year old female with PMHx of for hypertension, CAD status post CABG,. CVA and Parkinson's disease who recently had a mechanical fall and was admitted due to left humerus fracture. She had left humerus ORIF yesterday. Consult was called today for decreased urine output. There was no intraoperative complications noted. About 1 50 mL of blood loss intraoperatively. Patient had a Bolton catheter placed which had about 300 mL of overnight urine output for which hospice consult was obtained. Currently she has some pain her left arm. Bolton catheter was taken out this morning. She has not voided since morning. Blood pressure has been stable however one episode of hypotension was noted yesterday night. Past Med Surg Social Fam HX - Past Medical History Medical history: coronary artery disease, CVA, diabetes, myocardial infarction, thyroid disease Additional medical history: parkinsons, corticobasal syndrome, Psychiatric history: anxiety, depression - Past Surgical History Surgical History: appendectomy, coronary bypass (CABG), hysterectomy Additional surgical history: r and left toe removed, - Social History Smoking Status: Never smoker Smokeless Tobacco Status: No Alcohol use: none Drug use: none Activity Level: Uses cane/walker - Family History Father Adopted: No Family Member Ethnicity: Non- Living Status: Age at : 87 Cause of : Cancer Hx Family Cardiac Disorders: Yes Hx Family Respiratory Disorders: No Hx Family Cancer: Yes (throat) Hx Family GI Disorders: No Hx Family Genitourinary Disorders: No Hx Family Endocrine Disorder: No Hx Family Musculoskeletal Disorders: No Hx Family Neuromuscular Disorders: No Hx Family Neurologic Disorders: No Hx Family HEENT Disorders: No Hx Family Autoimmune Disorders: No Hx Family Reproductive Disorders: No Hx Family Psychosocial Disorders: No Hx Family Medical Disorders: No All systems: reviewed and no additional remarkable complaints except as stated Review of systems: in HPI Internal Medicine - CN: Meds Aspirin [Lo-Dose Aspirin EC] 81 mg PO DAILY 08/18/16 [History] Cranberry Conc/Ascorbic Acid [Cranberry Urinary Comfort Sfgl] 1 each PO DAILY [History] Gabapentin [Neurontin] 300 mg PO TID 08/18/16 [History] Levothyroxine Sodium [Levoxyl] 75 mcg PO DAILY 08/18/16 [History] Losartan Potassium [Cozaar] 50 mg PO DAILY 08/18/16 [History] Metformin HCl [Metformin HCl ER] 500 mg PO QPM 08/18/16 [History] Nitroglycerin [Nitrostat] 0.4 mg SL Q5M 08/18/16 [History] Rivastigmine Tartrate (oral) [Exelon] 1.5 mg PO BID 08/18/16 [History] DiphenhydraMINE [Benadryl] 25 mg PO Q6HR PRN 05/11/17 [History] Ergocalciferol (VITAMIN D2) [Vitamin D] 400 unit PO DAILY 11/15/17 [History] OxyCODONE Immed Rel [Roxicodone 10 MG] 10 mg PO BID PRN 11/15/17 [History] 3 Allergy/AdvReac Type Severity Reaction Status Date / Time [id number] Reductase Allergy Intermediate Vomiting Verified 11/15/17 08:51 Inhibitor [Statins] ceci flavor Allergy Rash Verified 11/15/17 08:51 carbidopa [From Sinemet] AdvReac Nausea Verified 11/15/17 08:51 levodopa [From Sinemet] AdvReac Nausea Verified 11/15/17 08:51 pregabalin [From Lyrica] AdvReac see comment Verified 11/15/17 08:51 ranolazine [From Ranexa] AdvReac Palpitation Verified 11/15/17 08:51 s reserpine AdvReac See Verified 11/15/17 08:51 Comments tapentadol [From Nucynta] AdvReac See Verified 11/15/17 08:51 Comments Hospitalist - CN: Exam - Constitutional Vitals: Temp Pulse Resp BP Pulse Ox 97.8 F 94 16 129/67 95 11/16/17 07:00 11/16/17 07:00 11/16/17 07:00 11/16/17 07:00 11/16/17 07:00 General appearance IM: Present: A&O X 3, no acute distress Exam: Constitutional: Vitals as noted. Conversant. No Apparent Distress. Lt arm sling. Eyes exam: Sclera white, conjunctiva clear, no lid lag, PEARLA. ENT exam: Grossly normal hearing. Nasophargeal and Oropharyngeal exam unremarkable. Moist mucus membranes. No JVD, carotid bruit, no cervical lymphadenopathy. no thyromegaly or mass. Respiratory exam: Clear to auscultation bilaterally. No accessory muscle use, rales, rhonchi or wheezes Cardiovascular exam: RRR, +S1, +S2. no murmur, gallop, rubs. No chest wall tenderness GI/Abdominal exam: Soft, Non-tender, Non-distended, normal bowel sounds, soft, no peritoneal signs. no orgenomegaly or mass appreciated. no hernia. Musculoskeletal exam: full ROM, no atrophy noted. Lt arm sling noted. no edema or cyanosis, warm, pulses palpable and symmetrical in UE/LE. no calf tenderness. Neurological exam: AO X3, CN II-XII grossly intact, grossly normal sensory exam. Increase muscle rigidity. Skin exam: No skin rash or ulcers noted. ecchymosis noted on Rt arm flexor region. Pych: Good insight and judgement. Intact memory. AOx3. Mood and affect Internal Medicine - CN: Reslt - Labs CBC & Chem 7: 11/16/17 04:05 11/16/17 04:05 Labs: Short CBC 11/16/17 Range/Units 04:05 WBC 13.5 H (4.3-11.1) K/mcL Hgb 9.5 L D (11.5-15.4) g/dL Hct 28.1 L (35.3-44.9) % Plt Count 251 (140-400) K/mcL BMP 11/16/17 04:05 Sodium 138 Potassium 4.8 Chloride 105 Carbon Dioxide 27 BUN 23 Creatinine 0.92 Glucose 130 H Calcium 8.3 L - Impressions Impressions Elbow X-Ray 11/15/17 00:00 IMPRESSION: Fluoroscopy was utilized for the purposes of ORIF of the distal humerus fracture. No gross complication is evident. D/ / 11/15/2017 13:48:53 Daniel Nicholas MD / [facility] Interpreting Provider: Daniel Nicholas MD Fluoroscopy 11/15/17 00:00 IMPRESSION: Fluoroscopy was utilized for the purposes of ORIF of the distal humerus fracture. No gross complication is evident. D/ / 11/15/2017 13:48:53 Daniel Nicholas MD / [facility] Interpreting Provider: Daniel Nicholas MD Chest X-Ray 11/15/17 10:51 IMPRESSION: Endotracheal tube and right subclavian central line are in good position without evident complication. Suboptimal inspiration causing bronchovascular crowding. D/ / Aakash Man MD / Aakash Man MD Interpreting Provider: Aakash Man MD Consult Discharge Plan - Plan Referrals: Jena Roland VIDEO GAME ANIMATOR [Primary Care Provider] -
[2017-11-16] MEDS ORDERED: CRANBERRY PO SCH (09:00)
[2017-11-16] MEDS ORDERED: [UNRECOGNIZED DRUG - OTHER] PO SCH (09:00)
[2017-11-16] MEDS ORDERED: ASCORBIC ACID PO SCH (09:00)
[2017-11-16] MEDS: Rivastigmine Tartrate (oral) 1.5 MG CAPSULE PO SCH ×2 (09:22→20:18)
[2017-11-16] MEDS: Gabapentin 300 MG CAPSULE PO SCH ×3 (09:22→20:18)
[2017-11-16] MEDS: *HR* HYDROcodone/Acet 5/325 mg TABLET PO PRN ×2 (09:23→17:32)
[2017-11-16] MEDS: Aspirin Enteric Coated 81 MG Tablet PO SCH (09:23)
[2017-11-16] MEDS: Cholecalciferol (D-3) 1,000 UNIT TABLET PO SCH (09:23)
[2017-11-16] MEDS: Ringers Solution, Lactated 1,000 ML IVC SCH (09:23)
--- NOTE | 2017-11-16 09:37 | Anesthesia Evaluation Post Op ---
Date of Encounter: 11/16/17 Time of Encounter: 17:00 - Vital Signs Vital Signs: VSS - Lungs Lungs: Clear Ascult./Percussion - Airway Airway: Non-obstructed - Cardiovascular Regular Rate - Mental Status Mental Status: Alert & Oriented, Answers Appropriately - Hydration Hydration: Ice chips - Discharge PostOp Status: Transfer Patient to floor
[2017-11-16] MEDS: Insulin LISPRO 300 UNITS/3 ML VIAL SQ SCH ×4 (12:04→20:18)
[2017-11-16] MEDS ORDERED: 0.9 % Sodium Chloride 500 ML ONE (16:03)
[2017-11-16 16:25] LABS: Creatinine,Urine 262 mg/dL; Sodium, Urine < 10.0 mEq/L
[2017-11-16] MEDS: Acetaminophen 325 MG TABLET PO PRN (23:26)
[2017-11-17] MEDS: Ringers Solution, Lactated 1,000 ML IVC SCH ×2 (02:46→17:09)
[2017-11-17 04:46] LABS: BUN/Creatinine Ratio 32 (6-26); Blood Urea Nitrogen 28 mg/dL (8-23); Calcium 7.8 mg/dL (8.6-10.3); Carbon Dioxide 22 mEq/L (23-29); Chloride 105 mEq/L (98-107); Glucose 129 mg/dL (70-105); Osmolality,Calculated 287 (280-300); Potassium 4.2 mEq/L (3.5-5.1); Sodium 135 mEq/L (136-145); eGFR For Non-African Americans > 60 (> 60)
[2017-11-17] MEDS: *HR* Enoxaparin 40 MG/0.4 ML SYRINGE SQ SCH (06:24)
--- NOTE | 2017-11-17 07:16 | Orthopedics Progress Note ---
Date of Encounter: 11/17/17 Time of Encounter: 07:14 Subjective Interval history: S: Resting in bed comfortably. Minimal pain to the left arm. O: Afebrile on the vital signs are stable Left upper extremity and posterior long-arm splint Mild puffiness to the digits She can grossly flex and extend the digits; radial nerve function intact Fingers are grossly sensate and well-perfused A: Post open reduction and internal fixation of the left distal humerus Low UOP and BPs P: Appreciate hospitalist input regarding UOP and low BPs; Defer to them regarding these issues. Patient willing to go to rehab facility PT/OT, mobilized when able, nonweightbearing to the left upper extremity, digital motion exercises to the left upper extremity. Will check H/H today Objective Vital signs: Vital Signs Temp Pulse Resp BP Pulse Ox 11/17/17 03:35 97.5 F L 91 17 96/68 92 11/16/17 23:17 97.9 F 96 16 96/67 91 11/16/17 18:11 97.9 F 97 16 79/56 91 11/16/17 14:08 97.8 F 81 18 126/68 95 11/16/17 10:19 98.1 F 87 16 134/76 96 Intake and Output 11/16/17 11/16/17 11/17/17 15:59 23:59 07:59 Intake Total 2579 / 2579 600 / 600 1000 / 1000 Output Total 50 / 50 Balance 2529 / 2529 600 / 600 1000 / 1000 Intake: IV Fluids 1000 / 1000 500 / 500 1000 / 1000 0.9 % Sodium Chloride 500 ML @ 500 / 500 937.5 mls/hr IVC .Q32M ONE Rx#: [id number] Lactated Ringers 1,000 ML @ 75 1000 / 1000 1000 / 1000 mls/hr IVC .[id number] [facility] Rx#: [id number] Oral 300 / 300 100 / 100 Other 1279 / 1279 Output: Straight Cath 50 / 50 Other: Meal Dinner Percent of Meal Consumed 50% 90% Blood Glucose* 143 145 - Labs CBC & BMP: 11/16/17 04:05 11/17/17 03:45 Labs: Abnormal lab results WBC 13.5 K/mcL (4.3-11.1) H 11/16/17 04:05 RBC 2.97 M/mcL (3.82-4.97) L 11/16/17 04:05 Hgb 9.5 g/dL (11.5-15.4) L D 11/16/17 04:05 Hct 28.1 % (35.3-44.9) L 11/16/17 04:05 Sodium 135 mEq/L (136-145) L 11/17/17 03:45 Carbon Dioxide 22 mEq/L (23-29) L 11/17/17 03:45 BUN 28 mg/dL (8-23) H 11/17/17 03:45 BUN/Creatinine Ratio 32 (6-26) H 11/17/17 03:45 Glucose 129 mg/dL (70-105) H 11/17/17 03:45 POC Glucose 178 mg/dL (70-99) H 11/16/17 19:58 Calcium 7.8 mg/dL (8.6-10.3) L 11/17/17 03:45 Consult Discharge Plan - Plan Referrals: Jena Roland, MARY [Primary Care Provider] -
[2017-11-17 08:02] LABS: Hematocrit 30.5 % (35.3-44.9); Hemoglobin 10.1 g/dL (11.5-15.4)
[2017-11-17] MEDS: Gabapentin 300 MG CAPSULE PO SCH ×3 (09:08→22:31)
[2017-11-17] MEDS: Aspirin Enteric Coated 81 MG Tablet PO SCH (09:08)
[2017-11-17] MEDS: Rivastigmine Tartrate (oral) 1.5 MG CAPSULE PO SCH ×2 (09:09→22:31)
[2017-11-17] MEDS: Cholecalciferol (D-3) 1,000 UNIT TABLET PO SCH (09:09)
[2017-11-17] MEDS: Nitroglycerin 0.4 MG TAB.SUBL SL PRN ×2 (10:17→10:23)
[2017-11-17] MEDS ORDERED: Aspirin 325 MG TABLET PO ONE (10:36)
[2017-11-17] MEDS ORDERED: 0.9 % Sodium Chloride 1,000 ML IVC ONE (10:37)
[2017-11-17] MEDS ORDERED: 0.9 % Sodium Chloride 1,000 ML ONE (10:38)
[2017-11-17] MEDS: Insulin LISPRO 300 UNITS/3 ML VIAL SQ SCH ×4 (11:23→22:31)
--- NOTE | 2017-11-17 11:27 | Internal Med Progress Note ---
Hospitalist Progress Note - Encounter Date of Encounter: 11/17/17 Time of Encounter: 11:26 - Subjective Interval History: Attention drawn to patient who developed chest pain 8-10/10, pressure like non- radiating During the episode, she had hypotension and hypoxia EKG showed LAFB an sinus rhythm Blood pressure is improving with IVF - Exam Vitals: Temp Pulse Resp BP Pulse Ox 98.0 F 99 18 103/73 99 11/17/17 08:00 11/17/17 08:00 11/17/17 08:00 11/17/17 08:00 11/17/17 08:00 Exam: Constitutional: Vitals as noted. Conversant. No Apparent Distress. Lt arm sling. Eyes exam: Sclera white, conjunctiva clear, no lid lag, PEARLA. ENT exam: Moist mucus membranes. No JVD, carotid bruit, no cervical lymphadenopathy. no thyromegaly or mass. Respiratory exam: Diffuse wheezing anteriorly. Equal chest wall movement. No rhonchi or rales. Cardiovascular exam: RRR, +S1, +S2. no murmur, gallop, rubs. No chest wall tenderness GI/Abdominal exam: Soft, Non-tender, Non-distended, normal bowel sounds, soft, no peritoneal signs. no orgenomegaly or mass appreciated. no hernia. Musculoskeletal exam: full ROM, no atrophy noted. Lt arm sling noted. no edema or cyanosis, warm, pulses palpable and symmetrical in UE/LE. no calf tenderness. Neurological exam: AO X3, CN II-XII grossly intact, grossly normal sensory exam. Increase muscle rigidity. Skin exam: Multiple bruises and ecchymosis. Pych: Normal affect. - Assessment and Plan (1) Essential hypertension Current Visit: Yes Status: Chronic Assessment and Plan: Blood pressure within normal limit, patient experienced episodes of hypotension during his hospitalization, continue to hold blood pressure medications. (2) Diabetes mellitus, type 2 Current Visit: Yes Status: Chronic Assessment and Plan: Fingersticks acceptable continue sliding scale insulin. (3) Supracondylar fracture of humerus Current Visit: Yes Status: Acute Assessment and Plan: POD 2 Management per ortho Ensure pain control (4) Decreased urine output Current Visit: Yes Status: Acute Assessment and Plan: Patient with episodes of oliguria and urinary retention. Place Dang catheter and measure intake and output. (5) DVT prophylaxis Current Visit: Yes Status: Acute Assessment and Plan: On Lovenox (6) Chest pain Current Visit: Yes Status: Acute Assessment and Plan: Patient developed acute substernal chest pain this morning, associated with hypoxia and hypotension with no tachycardia. She has a history of quadruple bypass, initial EKG showed sinus rhythm with left anterior fascicular block with no ST segment changes. Initial troponin negative Patient was wheezing diffusely at this time, improved with DuoNeb treatment Continue current home medications Cycle troponins 3 Echocardiogram done on admission showed multiple wall motion hypokinesis Consider cardiology evaluation if pain persists Send d-dimer (7) Coronary artery disease Current Visit: Yes Status: Chronic Assessment and Plan: See chest pain (8) Pneumonia Current Visit: Yes Status: Acute Assessment and Plan: Send admitted to this facility 11/15 for left humeral fracture post ORIF. Developed acute chest pain this a.m., associated with hypoxia requiring 2-3 L of oxygen. Stat chest x-ray shows a right lower lobe opacity with pleural effusion Patient will be treated for community-acquired pneumonia, blood cultures have been obtained, we will send urine Legionella and streptococcal antigen, start on ceftriaxone and azithromycin IV. (9) Hypoxia Current Visit: Yes Status: Acute Assessment and Plan: Likely due to pneumonia with right sided pleural effusion Continue management as an pneumonia Continue oxygen supplementation For therapeutic thoracentensis if not clinically improved - Time Spent with Patient Total time spent is greater than 50% in coordination of care (as documented) at patient's floor/unit and/or counseling patient: Greater than 35 minutes Plan of Care Discussed with: nurse Internal Medicine: Result - Labs CBC & Chem 7: 11/17/17 07:43 11/17/17 03:45 Labs: Short CBC 11/17/17 Range/Units 07:43 Hgb 10.1 L (11.5-15.4) g/dL Hct 30.5 L (35.3-44.9) % BMP 11/17/17 03:45 Sodium 135 L Potassium 4.2 Chloride 105 Carbon Dioxide 22 L BUN 28 H Creatinine 0.88 Glucose 129 H Calcium 7.8 L - Impressions Impressions Echocardiogram 11/16/17 14:35 Impressions: Technically challenging due to clinical status. LVEF 60-65%. Not all LV wall segments were well visualized. Indeterminate diastolic function. RV is not optimally visualized. Moderate-severe tricuspid regurgitation. Mild pulmonic regurgitation. Mild pulmonary hypertension. No evidence of PFO with agitated saline contrast. Left Ventricular Wall Motion: Rest Echo Findings The apex, apical inferior, mid inferior, basal inferior, apical anterior, mid anterior and basal anterior limon were not visualized. All other wall segments showed normal motion. Findings: Study Quality * Technically challenging due to clinical status. ECG Findings * Normal sinus rhythm. Left Ventricle * LVEF 60-65%. * Indeterminate diastolic function. * Normal LV chamber size and wall thickness. Right Ventricle * RV is not optimally visualized. Left Atrium * Left atrial size is not optimally visualized. Right Atrium * Right atrium is not well visualized. Aortic Valve * No aortic regurgitation. * Trileaflet aortic valve. * No aortic stenosis. * Mild calcification. Mitral Valve * No mitral regurgitation. * Normal mitral valve structure. * No mitral stenosis. Tricuspid Valve * Tricuspid valve not well visualized. * Moderate-severe tricuspid regurgitation. * Estimated RA pressure is 3 mmHg. * Estimated RVSP is 48 mmHg. * Mild pulmonary hypertension. Pulmonic Valve * Pulmonic valve is not well visualized. * No pulmonic stenosis. * Mild pulmonic regurgitation. Pulmonary Artery * Normal visualized portions of the main pulmonary artery. Aorta * Normally sized aortic root. Pericardium * There is no pericardial effusion present. Interatrial Septum * No evidence of PFO by color Doppler. * No evidence of PFO with agitated saline contrast. IVC * Normal IVC dimensions and inspiratory collapse. Consult Discharge Plan - Plan Referrals: Jena Roland, HIM SPECIALIST [Primary Care Provider] - (2) Diabetes mellitus, type 2 Qualifiers: Diabetes mellitus halfway insulin use: without tank terminal gauger use Diabetes mellitus complication status: without complication Qualified Code(s): E11.9 - Type 2 diabetes mellitus without complications (3) Supracondylar fracture of humerus Qualifiers: Encounter type: initial encounter Fracture type: closed Laterality: left Qualified Code(s): S42.412A - Displaced simple supracondylar fracture without intercondylar fracture of left humerus, initial encounter for closed fracture (6) Chest pain Qualifiers: Chest pain type: unspecified Qualified Code(s): R07.9 - Chest pain, unspecified (7) Coronary artery disease Qualifiers: Coronary Disease-Associated Artery/Lesion type: bypass graft [place] vs. transplanted heart: [place] heart Associated angina: with other forms of angina Qualified Code(s): I25.708 - Atherosclerosis of coronary artery bypass graft(s ), unspecified, with other forms of angina pectoris (8) Pneumonia Qualifiers: Pneumonia type: due to unspecified organism Laterality: right Lung location : lower lobe of lung Qualified Code(s): J18.1 - Lobar pneumonia, unspecified organism
[2017-11-17] MEDS ORDERED: Ipratropium/Albuterol Neb 3 ML IH STA (11:42)
--- NOTE | 2017-11-17 14:58 | Orthopedics Progress Note ---
Date of Encounter: 11/17/17 Time of Encounter: 14:57 Subjective Interval history: S: Resting in bed comfortably. Complains of wheezing and chest pain from earlier today, hospital is currently working up O: Afebrile on the vital signs are stable Left upper extremity in posterior long-arm splint Mild puffiness to the digits She can grossly flex and extend the digits; radial nerve function intact Fingers are grossly sensate and well-perfused A: Post open reduction and internal fixation of the left distal humerus P: Appreciate hospitalist input regarding medical issues. Orthopedically stable for discharge when medically stable. PT/OT, mobilize when able, nonweightbearing to the left upper extremity, digital motion exercises to the left upper extremity. Objective Vital signs: Vital Signs Temp Pulse Resp BP Pulse Ox 11/17/17 12:34 81 11/17/17 12:10 98.4 F 94 22 106/71 95 11/17/17 12:03 16 94 11/17/17 08:00 98.0 F 99 18 103/73 99 11/17/17 03:35 97.5 F L 91 17 96/68 92 11/16/17 23:17 97.9 F 96 16 96/67 91 11/16/17 18:11 97.9 F 97 16 79/56 91 Intake and Output 11/16/17 11/17/17 11/17/17 23:59 07:59 15:59 Intake Total 600 / 600 1000 / 1000 120 / 120 Balance 600 / 600 1000 / 1000 120 / 120 Intake: IV Fluids 500 / 500 1000 / 1000 0.9 % Sodium Chloride 500 ML @ 500 / 500 937.5 mls/hr IVC .Q32M ONE Rx#: [id number] Lactated Ringers 1,000 ML @ 75 1000 / 1000 mls/hr IVC .[id number] [facility] Rx#: [id number] Oral 100 / 100 120 / 120 Other: Meal Dinner Breakfast Percent of Meal Consumed 90% 10% # Voids 1 Blood Glucose* 145 121 - Labs CBC & BMP: 11/17/17 07:43 11/17/17 03:45 Labs: Abnormal lab results WBC 13.5 K/mcL (4.3-11.1) H 11/16/17 04:05 RBC 2.97 M/mcL (3.82-4.97) L 11/16/17 04:05 Hgb 10.1 g/dL (11.5-15.4) L 11/17/17 07:43 Hct 30.5 % (35.3-44.9) L 11/17/17 07:43 Sodium 135 mEq/L (136-145) L 11/17/17 03:45 Carbon Dioxide 22 mEq/L (23-29) L 11/17/17 03:45 BUN 28 mg/dL (8-23) H 11/17/17 03:45 BUN/Creatinine Ratio 32 (6-26) H 11/17/17 03:45 Glucose 129 mg/dL (70-105) H 11/17/17 03:45 POC Glucose 178 mg/dL (70-99) H 11/16/17 19:58 Calcium 7.8 mg/dL (8.6-10.3) L 11/17/17 03:45 Consult Discharge Plan - Plan Referrals: Jena Roland, MARY [Primary Care Provider] -
--- NOTE | 2017-11-17 15:02 | Physician Discharge Referral ---
ExtendedCare Referral Info Transfer To: [facility] Expected Duration of Placement: 2 weeks - Transfer Medications Prescriptions: Oxycodone HCl/Acetaminophen [Percocet 5-325 mg Tablet] 1 each PO Q6HR PRN 7 Days #28 tablet PRN Reason: Pain Home Medications: Aspirin [Lo-Dose Aspirin EC] 81 mg PO DAILY 08/18/16 [History] Cranberry Conc/Ascorbic Acid [Cranberry Urinary Comfort Sfgl] 1 each PO DAILY [History] Gabapentin [Neurontin] 300 mg PO TID 08/18/16 [History] Levothyroxine Sodium [Levoxyl] 75 mcg PO DAILY 08/18/16 [History] Losartan Potassium [Cozaar] 50 mg PO DAILY 08/18/16 [History] Metformin HCl [Metformin HCl ER] 500 mg PO QPM 08/18/16 [History] Nitroglycerin [Nitrostat] 0.4 mg SL Q5M 08/18/16 [History] Rivastigmine Tartrate (oral) [Exelon] 1.5 mg PO BID 08/18/16 [History] DiphenhydraMINE [Benadryl] 25 mg PO Q6HR PRN 05/11/17 [History] Ergocalciferol (VITAMIN D2) [Vitamin D] 400 unit PO DAILY 11/15/17 [History] OxyCODONE Immed Rel [Roxicodone 10 MG] 10 mg PO BID PRN 11/15/17 [History] Oxycodone HCl/Acetaminophen [Percocet 5-325 mg Tablet] 1 each PO Q6HR PRN 7 Days #28 tablet 11/17/17 [Rx] Allergies/Adverse Reactions: 3 Allergy/AdvReac Type Severity Reaction Status Date / Time Dvgnndh-Iju-Xgg Reductase Allergy Intermediate Vomiting Verified 11/15/17 08:51 Inhibitor [Statins] ceci flavor Allergy Rash Verified 11/15/17 08:51 carbidopa [From Sinemet] AdvReac Nausea Verified 11/15/17 08:51 levodopa [From Sinemet] AdvReac Nausea Verified 11/15/17 08:51 pregabalin [From Lyrica] AdvReac see comment Verified 11/15/17 08:51 ranolazine [From Ranexa] AdvReac Palpitation Verified 11/15/17 08:51 s reserpine AdvReac See Verified 11/15/17 08:51 Comments tapentadol [From Nucynta] AdvReac See Verified 11/15/17 08:51 Comments - Respiratory Orders Smoking Cessation: Smoking cessation has been advised. For more information, call the [place] Tobacco Quit Line at 6-564-LTAV-NOW. - Mobility Orders Chair (Up to chair at least 2 times per day. Can mobilize with a chico walker. WBAT B/L lower extremities and right upper etremities. NWB to the left upper extremity.) - Rehabiliation Orders Rehab Orders: Evaluation for Physical Therapy, Evaluation for Occupational Therapy Other: NWB Left upper extremity. - Treatments List/Other: DISCHARGE INSTRUCTIONS Dr. Nunn DISCHARGE DIAGNOSIS/PROCEDURE Open reduction and internal fixation of left distal humerus ACTIVITY: Nonweightbearing to the left upper extremity. Weightbearing as tolerated to the bilateral lower extremities. May ambulate with assistance under the direction of physical therapy and occupational therapy using a hemiwalker on the right. WOUND CARE: Keep the dressing and splint clean, dry, and intact. Do not take off or get wet or dirty. DIET: Diabetic diet MEDICATIONS: Pain: Percocet prescription provided FOLLOW-UP Follow-up with Dr. Nunn at the office 2 weeks from the surgery date for a post operative evaluation. Call the office at [phone] to schedule or confirm your appointment. WHEN TO CALL THE DOCTOR OR WHEN TO SEEK CARE BEFORE YOUR APPOINTMENT 1. Excess swelling or increased numbness not made better by elevating the hand and moving the fingers. 2. Uncontrolled pain. 3. A color change in your hand or fingers. 4. Worsening redness or drainage. 5. Fevers over 100.5 degrees F or 38.1 degrees C. 6. Any symptoms that bring concern to you. - Diet Orders Regular (Diabetic diet) CERTIFICATION: I certify that the transfer of the above named patient to an Extended Care Facility is necessary for the continuing treatment of the diagnosis listed. The above information is true and accurate reflection of patient's current condition. Confidential - Redisclosure prohibited without a patient's written consent.
[2017-11-17] MEDS: *HR* HYDROcodone/Acet 5/325 mg TABLET PO PRN (15:07)
[2017-11-17] MEDS: Ipratropium/Albuterol Neb 3 ML IH PRN (16:18)
--- NOTE | 2017-11-17 17:04 | Electrocardiograph Report ---
[place] [id number] Test Date: 2017-11-17 Pat Name: Rohini Boyle Department: 114 Room: [facility] Gender: F Election Assistant: : [id number] Requested By: Scooby Persaud Order Number: [id number] Reading MD: Chelita Abbasi Measurements Intervals [place] Rate: 97 P: 9 NH: 147 QRS: -48 QRSD: 96 T: 70 QT: 326 QTc: 381 Interpretive Statements SINUS RHYTHM LEFT ANTERIOR FASCICULAR BLOCK Electronically Signed On 11-17-2017 17:03:45 EDT by Chelita Abbasi
[2017-11-17] MEDS ORDERED: Isovue-370 500 ML INFUS..BTL IV ONE (18:10)
[2017-11-17 18:35] LABS: INR 1.1; Prothrombin Time 12.7 Seconds (9.4-12.1)
[2017-11-17 18:38] LABS: Activated Partial Thrombo Time 32.5 Seconds (26.0-36.0)
--- NOTE | 2017-11-17 18:39 | Event Note ---
Date of Encounter: 11/17/17 Time of Encounter: 18:37 Patient's work of breathing increased On evaluation, she is tachypneic, RR 18-22, able to speak in broken sentences, she has diffuse airway secretions, and she is complaining of back pain She is now tachycardic , but saturating 98% on 3L Oxygen by nasal canula STAT CT angio to r/o PE ordered BiPAP ordered Transfer patient to SDU 2ns set of trops , PT/INR and D-dimer ordered Will continue to follow High risk for decompensation
[2017-11-18] MEDS: *HR* HYDROcodone/Acet 5/325 mg TABLET PO PRN ×2 (04:20→16:00)
[2017-11-18] MEDS: *HR* Enoxaparin 40 MG/0.4 ML SYRINGE SQ SCH (06:25)
[2017-11-18 06:39] LABS: Alanine Aminotransferase 7 Units/L (7-52); Albumin 2.6 g/dL (3.5-5.7); Albumin/Globulin Ratio 1.1 (1.1-2.2); Alkaline Phosphatase 64 Units/L (34-104); Aspartate Amino Transferase 18 Units/L (13-39); BUN/Creatinine Ratio 40 (6-26); Bilirubin,Total 0.4 mg/dL (0.3-1.0); Blood Urea Nitrogen 35 mg/dL (8-23); Calcium 8.1 mg/dL (8.6-10.3); Carbon Dioxide 22 mEq/L (23-29); Chloride 104 mEq/L (98-107); Globulin 2.3 g/dL (2.4-3.5); Glucose 175 mg/dL (70-105); Osmolality,Calculated 288 (280-300); Potassium 4.5 mEq/L (3.5-5.1); Sodium 133 mEq/L (136-145); Total Protein 4.9 g/dL (6.4-8.9); eGFR For Non-African Americans > 60 (> 60)
[2017-11-18 06:42] LABS: Basophils % 0.2 %; Hemoglobin 10.9 g/dL (11.5-15.4); Immature Granulocytes % 1.2 % (0-4); Lymphocytes # 0.9 K/mcL (0.6-4.6); Lymphocytes % 4.3 %; Mean Corpuscular HGB Conc 34.1 g/dL (31.6-35.5); Mean Corpuscular Hemoglobin 33.1 pg (28.0-33.3); Mean Corpuscular Volume 97.3 fL (83.0-100.0); Monocytes # 0.8 K/mcL (0.0-1.3); Monocytes % 3.9 %; Neutrophils # 17.8 K/mcL (1.6-8.9); Nucleated Red Blood Cells 0.2 /100 WBC (0); Platelet Count 297 K/mcL (140-400); Red Blood Count 3.29 M/mcL (3.82-4.97); Red Cell Distribution Width 13.6 % (11.5-14.5); Segmented Neutrophils % 90.4 %
[2017-11-18] MEDS: Insulin LISPRO 300 UNITS/3 ML VIAL SQ SCH ×4 (08:36→21:24)
[2017-11-18] MEDS: Azithromycin 500 MG in D5% in Water 250 ML IVPB SCH (08:52)
[2017-11-18] MEDS: Aspirin Enteric Coated 81 MG Tablet PO SCH (08:52)
[2017-11-18] MEDS: Gabapentin 300 MG CAPSULE PO SCH ×3 (08:52→21:24)
[2017-11-18] MEDS: Cholecalciferol (D-3) 1,000 UNIT TABLET PO SCH (08:52)
[2017-11-18] MEDS: Rivastigmine Tartrate (oral) 1.5 MG CAPSULE PO SCH ×2 (08:52→21:24)
[2017-11-18] MEDS: cefTRIAXone 2,000 MG in Water for inj. (sterile) 20 ML 20 ML IVP SCH (08:52)
--- NOTE | 2017-11-18 09:54 | Internal Med Progress Note ---
Hospitalist Progress Note - Encounter Date of Encounter: 11/18/17 Time of Encounter: 09:53 - Subjective Interval History: 82 F admitted by orthopedics for traumatic R humeral fracture, s/p ORIF on 11/15 Hospitalist team was consulted for shortness of breath and decreased urinary output. Incidental finding of bilateral pleural effusion and right lower lobe pneumonia. Patient was transferred to stepdown unit due to acute hypoxic respiratory failure She was seen and evaluated at the bedside this morning. She is currently off BiPAP. She reports minimal improvement in the shortness of breath. She continues to require 3-4 L of oxygen by nasal cannula. Pulmonology was consulted for thoracentesis. - Exam Vitals: Temp Pulse Resp BP Pulse Ox 98.2 F 94 20 109/79 92 11/18/17 06:59 11/18/17 06:59 11/18/17 06:59 11/18/17 06:59 11/18/17 04:53 Exam: Constitutional: Vitals as noted. Conversant. Mild respiratory Distress. Lt arm sling. Eyes exam: Sclera white, conjunctiva clear, no lid lag, KARINA. ENT exam: Moist mucus membranes. No JVD, carotid bruit, no cervical lymphadenopathy. no thyromegaly or mass. Respiratory exam: Coarse breath sounds with diminished breath sounds in both lung bases Cardiovascular exam: RRR, +S1, +S2. no murmur, gallop, rubs. No chest wall tenderness GI/Abdominal exam: Soft, Non-tender, Non-distended, normal bowel sounds, soft, no peritoneal signs. no organomegaly or mass appreciated. no hernia. Musculoskeletal exam: full ROM, no atrophy noted. Lt arm sling noted. no edema or cyanosis, warm, pulses palpable and symmetrical in UE/LE. no calf tenderness. Neurological exam: AO X3, CN II-XII grossly intact, grossly normal sensory exam. Increase muscle rigidity. Skin exam: Multiple bruises and ecchymosis. Pych: Normal affect. - Assessment and Plan (1) Sepsis Current Visit: Yes Status: Acute Assessment and Plan: met sepsis criteria with tachypnea, tachycardia, new leukocytosis with WBC of 19 ,700 CXR and CTA significant for RLL PNA with bilateral pleural effusions Blood cultures drawn 11/17 Continue Ceftriaxone 2g daily Continue Azithromycin 500mg IV daily Continue O2 Follow sputum culture Follow legionella Ag and Strep Ag Continue to monitor (2) Essential hypertension Current Visit: Yes Status: Chronic Assessment and Plan: Medications held due to low blood pressure Will resume with improvement (3) Diabetes mellitus, type 2 Current Visit: Yes Status: Chronic Assessment and Plan: Fingersticks acceptable continue sliding scale insulin. (4) Supracondylar fracture of humerus Current Visit: Yes Status: Inactive Assessment and Plan: POD 3 Management per ortho Ensure pain control (5) Decreased urine output Current Visit: Yes Status: Acute Assessment and Plan: UP improving Continue to monitor UO Strict I/Os (6) DVT prophylaxis Current Visit: Yes Status: Acute Assessment and Plan: On Lovenox, continue same (7) Chest pain Current Visit: Yes Status: Resolved Assessment and Plan: Now resolved Patient developed acute substernal chest pain this morning, associated with hypoxia and hypotension with no tachycardia. She has a history of quadruple bypass, initial EKG showed sinus rhythm with left anterior fascicular block with no ST segment changes. Initial troponin negative X2, 3rd set 0.04 Patient was wheezing diffusely at this time, improved with DuoNeb treatment Continue current home medications Echocardiogram done on admission showed multiple wall motion hypokinesis CTA with acute devpt of pleural effusion Continue supportive care, pulm eval for thoracentensis (8) Coronary artery disease Current Visit: Yes Status: Chronic Assessment and Plan: See chest pain (9) Pneumonia Current Visit: Yes Status: Acute Assessment and Plan: Send admitted to this facility 11/15 for left humeral fracture post ORIF. Developed acute chest pain this a.m., associated with hypoxia requiring 2-3 L of oxygen. CXR and CTA shows a right lower lobe opacity with pleural effusion Patient will be treated for community-acquired pneumonia, blood cultures have been obtained, we will send urine Legionella and streptococcal antigen Continue ceftriaxone and azithromycin IV. (10) Hypoxia Current Visit: Yes Status: Acute Assessment and Plan: Likely due to pneumonia with right sided pleural effusion Continue management as an pneumonia Continue oxygen supplementation For therapeutic and diagnostic thoracentensis,pulmonology consulted (11) Pleural effusion Current Visit: Yes Status: Acute Assessment and Plan: For diagnostic and therapeutic thoracentensis today - Time Spent with Patient Total time spent is greater than 50% in coordination of care (as documented) at patient's floor/unit and/or counseling patient: Greater than 35 minutes Plan of Care Discussed with: nurse Internal Medicine: Result - Labs CBC & Chem 7: 11/18/17 04:00 11/18/17 05:30 Labs: Short CBC 11/18/17 Range/Units 04:00 WBC 19.7 H (4.3-11.1) K/mcL Hgb 10.9 L (11.5-15.4) g/dL Hct 32.0 L (35.3-44.9) % Plt Count 297 (140-400) K/mcL Neutrophils # 17.8 H (1.6-8.9) K/mcL BMP 11/18/17 05:30 Sodium 133 L Potassium 4.5 Chloride 104 Carbon Dioxide 22 L BUN 35 H Creatinine 0.88 Glucose 175 H Calcium 8.1 L Cardiac Enzymes 11/17/17 11/17/17 11/17/17 Range/Units 11:50 17:27 23:45 Troponin I 0.03 0.03 0.04 H* (< 0.04) ng/mL Liver Function 11/18/17 Range/Units 05:30 Total Bilirubin 0.4 (0.3-1.0) mg/dL AST 18 (13-39) Units/L ALT 7 (7-52) Units/L Alkaline Phosphatase 64 (34-104) Units/L Albumin 2.6 L (3.5-5.7) g/dL - ABG Interpretation ABG results: PT/INR, D-dimer PT 12.7 Seconds (9.4-12.1) H 11/17/17 18:20 D-Dimer 957 ng/mLFEU (0-500) H 11/17/17 18:20 - Impressions Impressions Echocardiogram 11/16/17 14:35 Impressions: Technically challenging due to clinical status. LVEF 60-65%. Not all LV wall segments were well visualized. Indeterminate diastolic function. RV is not optimally visualized. Moderate-severe tricuspid regurgitation. Mild pulmonic regurgitation. Mild pulmonary hypertension. No evidence of PFO with agitated saline contrast. Left Ventricular Wall Motion: Rest Echo Findings The apex, apical inferior, mid inferior, basal inferior, apical anterior, mid anterior and basal anterior limon were not visualized. All other wall segments showed normal motion. Findings: Study Quality * Technically challenging due to clinical status. ECG Findings * Normal sinus rhythm. Left Ventricle * LVEF 60-65%. * Indeterminate diastolic function. * Normal LV chamber size and wall thickness. Right Ventricle * RV is not optimally visualized. Left Atrium * Left atrial size is not optimally visualized. Right Atrium * Right atrium is not well visualized. Aortic Valve * No aortic regurgitation. * Trileaflet aortic valve. * No aortic stenosis. * Mild calcification. Mitral Valve * No mitral regurgitation. * Normal mitral valve structure. * No mitral stenosis. Tricuspid Valve * Tricuspid valve not well visualized. * Moderate-severe tricuspid regurgitation. * Estimated RA pressure is 3 mmHg. * Estimated RVSP is 48 mmHg. * Mild pulmonary hypertension. Pulmonic Valve * Pulmonic valve is not well visualized. * No pulmonic stenosis. * Mild pulmonic regurgitation. Pulmonary Artery * Normal visualized portions of the main pulmonary artery. Aorta * Normally sized aortic root. Pericardium * There is no pericardial effusion present. Interatrial Septum * No evidence of PFO by color Doppler. * No evidence of PFO with agitated saline contrast. IVC * Normal IVC dimensions and inspiratory collapse. Chest X-Ray 11/17/17 10:58 IMPRESSION: Moderate right pleural effusion which has increased from the previous study. D/ / 11/17/2017 12:08:23 Nehemiah Aparicio MD / Terri Edge Interpreting Provider: Nehemiah Aparicio MD Chest CTA 11/17/17 18:10 IMPRESSION: 1. No pulmonary embolism. 2. Large volume bilateral pleural effusion with associated relaxation atelectasis, right greater than left. Pneumonia is a consideration. No discrete Elliott mass lesion or nodule is evident. 3. 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 D/ / Jacob Mancilla / Jacob Mancilla Interpreting Provider: Jacob Mancilla Consult Discharge Plan - Plan Referrals: Jena Roland, MARY [Primary Care Provider] - Prescriptions: Oxycodone HCl/Acetaminophen [Percocet 5-325 mg Tablet] 1 each PO Q6HR PRN 7 Days #28 tablet PRN Reason: Pain (1) Sepsis Qualifiers: Sepsis type: sepsis due to unspecified organism Qualified Code(s): A41.9 - Sepsis, unspecified organism (3) Diabetes mellitus, type 2 Qualifiers: Diabetes mellitus watermaster insulin use: without group home use Diabetes mellitus complication status: without complication Qualified Code(s): E11.9 - Type 2 diabetes mellitus without complications (4) Supracondylar fracture of humerus Qualifiers: Encounter type: initial encounter Fracture type: closed Laterality: left Qualified Code(s): S42.412A - Displaced simple supracondylar fracture without intercondylar fracture of left humerus, initial encounter for closed fracture (7) Chest pain Qualifiers: Chest pain type: unspecified Qualified Code(s): R07.9 - Chest pain, unspecified (8) Coronary artery disease Qualifiers: Coronary Disease-Associated Artery/Lesion type: bypass graft [place] vs. transplanted heart: [place] heart Associated angina: with other forms of angina Qualified Code(s): I25.708 - Atherosclerosis of coronary artery bypass graft(s ), unspecified, with other forms of angina pectoris (9) Pneumonia Qualifiers: Pneumonia type: due to unspecified organism Laterality: right Lung location : lower lobe of lung Qualified Code(s): J18.1 - Lobar pneumonia, unspecified organism
[2017-11-18] MEDS ORDERED: Furosemide 40 MG/4 ML VIAL IVP ONE (09:56)
[2017-11-18] MEDS ORDERED: Lidocaine -MPF 2% 5 ML VIAL ONE (12:07)
--- NOTE | 2017-11-18 12:40 | Procedure Note ---
<Edouard Valencia - Last Filed: 11/18/17 12:36> Date of procedure: 11/18/17 Pre-op diagnosis: Pleural effusion Post-op diagnosis: same Procedure: A time-out was completed verifying correct patient, procedure, site, positioning , and special equipment if applicable. The patients right side was prepped and draped in a sterile manner after the appropriate infiltration level was confirmed by ultrasound. 1% lidocaine was used anesthetize the surrounding skin. A finder needle was then used to locate fluid and clear yellow fluid was obtained. A 10-blade scalpel used to make the incision. The thoracentesis catheter was then threaded without difficulty. The patient had 1000 mL of cloudy yellow fluid removed. Dr Hamilton was present for the entire procedure. A post-procedure chest x-ray was ordered and the fluid will be sent for several studies. Estimated Blood Loss: 2 ml The patient tolerated the procedure well and there were no complications. Anesthesia: local Surgeon: Edouard Valencia Was there an clinical project assistant present: Yes Work And Family Life Consultant: Bijan Hamilton Estimated blood loss (cc): 2 Specimen: Pleural fluid Condition: stable Disposition: floor <Bijan Hamilton - Last Filed: 11/18/17 13:02> - Attending Attestation I was present for the entire procedure and supervised Dr. Valencia who performs the procedure skillfully there were no immediate complications
--- NOTE | 2017-11-18 12:50 | Pulmonology Consult Note ---
Date of Encounter: 11/18/17 Time of Encounter: 12:48 Assessment and Plan (1) Pleural effusion Current Visit: Yes Status: Acute Interestingly my first assessment was I thought this was hydrostatic pulmonary edema secondary to volume overload she is about 5 L net positive since her admission however thoracentesis was performed at bedside today which was notable for milky fluid consistent with chylothorax. 50% of these cases trauma can be implicated. I suspect this is related to either the surgical repair or the initial trauma itself at the time of the fall. Malignancy is also high in the differential for a new chylothorax. In the current situation I think that is much less likely. In general terms net negative fluid balance as dictated by renal function and treatment for pneumonia is warranted. I would not use any more continuous infusion of crystalloid at this point. If there is concern for volume depletion clearly small boluses would be preferred as opposed to continuous infusion - neither of which is clearly indicated at this moment. We will follow up on pleural fluid analysis to confirm chylothorax. And I suspect early part of next week Lymphangiography of chest and abdomen can be considered after discussion with radiology team here to confirm traumatic chylothorax. She may need repeat thoracentesis at that time as well but we will continue to monitor this. Stat chest x-ray has been ordered to evaluate for the effusion post thoracentesis. Continue continuous telemetry and SPO2% monitoring (2) Hypoxia Current Visit: Yes Status: Acute Continue supplemental oxygen to keep saturation greater than 88% around 92%. Positive airway pressure as needed for work of breathing is a combination of factors including hydrostatic pulmonary edema and large pleural effusions. Cannot exclude possibility of underlying pneumonia.. There is a large component of atelectasis both from compression of the pleural effusion as well as the patient's body habitus and laying in bed clearly if possible getting her up out of bed and using incentive spirometry would help mitigate the effects of hypoxemia secondary to VQ mismatching from atelectasis which is very common in the postoperative period. She should receive chemical DVT prophylaxis unless contraindication arises (3) Pneumonia Current Visit: Yes Status: Acute Patient is receiving antimicrobials at the discretion of the primary housestaff I think this reasonable pending culture and clinical course. Qualifiers: Pneumonia type: due to unspecified organism Laterality: right Lung location: lower lobe of lung Qualified Code(s): J18.1 - Lobar pneumonia, unspecified organism History of Present Illness Consult date: 11/18/17 Requesting physician: Scooby Persaud Reason for consult: pleural effusion Chief complaint: Difficulty In Breathing History of present illness: Ms. Boyle is a 82 year old female with PMHx of for hypertension, CAD status post CABG CVA and Parkinson's disease admitted for open reduction and internal fixation of the left distal humerus after a mechanical fall. From the orthopedic standpoint patient has done very well unfortunately over the last couple of days she has had noticed lower urine output and relative hypotension she also had leukocytosis without clear evidence of fever she is being treated for pneumonia and been given IV fluids and she is about to 5 L positive since her hospitalization. Yesterday she became increasingly P Neck and was complaining of difficulty breathing with increasing oxygen requirement intermittently using nasal cannula and positive airway pressure generally speaking between 3-4 L supplemental oxygen has been required to keep her saturation in the low 90s. No underlying respiratory disease that she tells me about. A CTA was performed which was notable for large right-sided pleural effusion and to a lesser degree of left-sided pleural effusion pulmonary was consulted for further evaluation of this. Past Med Surg Social Fam HX - Past Medical History Medical history: coronary artery disease, CVA, diabetes, myocardial infarction, thyroid disease Additional medical history: parkinsons, corticobasal syndrome, Psychiatric history: anxiety, depression - Past Surgical History Surgical History: appendectomy, coronary bypass (CABG), hysterectomy Additional surgical history: r and left toe removed, - Social History Smoking Status: Never smoker Smokeless Tobacco Status: No Alcohol use: none Drug use: none - Family History Father Adopted: No Family Member Ethnicity: Non- Living Status: Age at : 87 Cause of : Cancer Hx Family Cardiac Disorders: Yes Hx Family Respiratory Disorders: No Hx Family Cancer: Yes (throat) Hx Family GI Disorders: No Hx Family Genitourinary Disorders: No Hx Family Endocrine Disorder: No Hx Family Musculoskeletal Disorders: No Hx Family Neuromuscular Disorders: No Hx Family Neurologic Disorders: No Hx Family HEENT Disorders: No Hx Family Autoimmune Disorders: No Hx Family Reproductive Disorders: No Hx Family Psychosocial Disorders: No Hx Family Medical Disorders: No Medications and Allergies Aspirin [Lo-Dose Aspirin EC] 81 mg PO DAILY 08/18/16 [History] Cranberry Conc/Ascorbic Acid [Cranberry Urinary Comfort Sfgl] 1 each PO DAILY [History] Gabapentin [Neurontin] 300 mg PO TID 08/18/16 [History] Levothyroxine Sodium [Levoxyl] 75 mcg PO DAILY 08/18/16 [History] Losartan Potassium [Cozaar] 50 mg PO DAILY 08/18/16 [History] Metformin HCl [Metformin HCl ER] 500 mg PO QPM 08/18/16 [History] Nitroglycerin [Nitrostat] 0.4 mg SL Q5M 08/18/16 [History] Rivastigmine Tartrate (oral) [Exelon] 1.5 mg PO BID 08/18/16 [History] DiphenhydraMINE [Benadryl] 25 mg PO Q6HR PRN 05/11/17 [History] Ergocalciferol (VITAMIN D2) [Vitamin D] 400 unit PO DAILY 11/15/17 [History] OxyCODONE Immed Rel [Roxicodone 10 MG] 10 mg PO BID PRN 11/15/17 [History] Oxycodone HCl/Acetaminophen [Percocet 5-325 mg Tablet] 1 each PO Q6HR PRN 7 Days #28 tablet 11/17/17 [Rx] 3 Allergy/AdvReac Type Severity Reaction Status Date / Time [id number] Reductase Allergy Intermediate Vomiting Verified 11/15/17 08:51 Inhibitor [Statins] ceci flavor Allergy Rash Verified 11/15/17 08:51 carbidopa [From Sinemet] AdvReac Nausea Verified 11/15/17 08:51 levodopa [From Sinemet] AdvReac Nausea Verified 11/15/17 08:51 pregabalin [From Lyrica] AdvReac see comment Verified 11/15/17 08:51 ranolazine [From Ranexa] AdvReac Palpitation Verified 11/15/17 08:51 s reserpine AdvReac See Verified 11/15/17 08:51 Comments tapentadol [From Nucynta] AdvReac See Verified 11/15/17 08:51 Comments All Systems: The remainder of the systems were reviewed and are negative Physical Examination Vital Signs: Vital Signs, Last 4 Hours Temp Pulse Resp BP Pulse Ox 11/18/17 11:32 98.2 F 105 20 100/82 93 General appearance: other (She is an elderly woman lying in bed fully awake and alert she looks slightly uncomfortable because of her respiratory rate) Eyes: nonicteric ENT: oropharynx dry Neck: supple, no lymphadenopathy Effort: very labored Auscultation: bilateral: diminished breath sounds Cardiovascular: regular rate and rhythm Gastrointestinal: normoactive bowel sounds, soft, non-tender Integumentary: normal Extremities: no cyanosis, no clubbing, pink and warm, no ischemia or petechiae, edema Musculoskeletal: other (Right arm status post surgical repair in a sling) normal mental status, non-focal exam, pupils equal and round mood appropriate Results - Laboratory Findings CBC and BMP: 11/18/17 04:00 11/18/17 05:30 PT/INR, D-dimer PT 12.7 Seconds (9.4-12.1) H 11/17/17 18:20 D-Dimer 957 ng/mLFEU (0-500) H 11/17/17 18:20 Abnormal lab findings: Abnormal lab results WBC 19.7 K/mcL (4.3-11.1) H 11/18/17 04:00 RBC 3.29 M/mcL (3.82-4.97) L 11/18/17 04:00 Hgb 10.9 g/dL (11.5-15.4) L 11/18/17 04:00 Hct 32.0 % (35.3-44.9) L 11/18/17 04:00 Neutrophils # 17.8 K/mcL (1.6-8.9) H 11/18/17 04:00 Nucleated RBCs/100 WBC 0.2 /100 WBC (0) H 11/18/17 04:00 PT 12.7 Seconds (9.4-12.1) H 11/17/17 18:20 D-Dimer 957 ng/mLFEU (0-500) H 11/17/17 18:20 Sodium 133 mEq/L (136-145) L 11/18/17 05:30 Carbon Dioxide 22 mEq/L (23-29) L 11/18/17 05:30 BUN 35 mg/dL (8-23) H 11/18/17 05:30 BUN/Creatinine Ratio 40 (6-26) H 11/18/17 05:30 Glucose 175 mg/dL (70-105) H 11/18/17 05:30 POC Glucose 162 mg/dL (70-99) H 11/17/17 16:45 Calcium 8.1 mg/dL (8.6-10.3) L 11/18/17 05:30 Troponin I 0.04 ng/mL (< 0.04) H* 11/17/17 23:45 Serum Total Protein 4.9 g/dL (6.4-8.9) L 11/18/17 05:30 Albumin 2.6 g/dL (3.5-5.7) L 11/18/17 05:30 Globulin 2.3 g/dL (2.4-3.5) L 11/18/17 05:30 - Microbiology Findings Microbiology Findings: Microbiology, Last 48 Hours 11/17/17 12:36 Blood Culture - Preliminary Peripheral Venipuncture Culture is incubating and being continuously monitored for growth. Final report to follow. 11/17/17 12:43 Blood Culture - Preliminary Peripheral Venipuncture Culture is incubating and being continuously monitored for growth. Final report to follow. - Diagnostic Findings Chest x-ray: report reviewed, image reviewed CT scan - chest: report reviewed, image reviewed - Clinical Findings Intake & Output: Intake & Output 11/17/17 11/18/17 11/18/17 23:59 07:59 15:59 Intake Total 1000 / 1000 250 / 250 Output Total 460 / 460 150 / 150 Balance 540 / 540 100 / 100 Consult Discharge Plan - Plan Referrals: Jena Roland, MARY [Primary Care Provider] - Prescriptions: Oxycodone HCl/Acetaminophen [Percocet 5-325 mg Tablet] 1 each PO Q6HR PRN 7 Days #28 tablet PRN Reason: Pain
--- NOTE | 2017-11-18 15:39 | Orthopedics Progress Note ---
Date of Encounter: 11/18/17 Time of Encounter: 15:35 Subjective Principal diagnosis: Left distal humerus fracture Interval history: The patient was transferred to [facility] last night due to respiratory distress A thoracentesis was performed today removing 1 L of fluid secondary to a chylothorax The patient states she is feeling much better and can breathes easier Left upper extremity: Sling and splint in place, positive swelling of hand with ecchymosis on dorsum. Patient has stiffness of digits is able to flex and extend all digits, abduct and adduct digits. Good capillary refill. Sensation intact in radial/median/ulnar nerve distributions. Assessment: Postoperative day #3 status post ORIF of left distal humerus, patient much improved after thoracentesis Plan: Continue medical/pulmonary management Discussed patient to continue range of motion exercises to hand, still nonweightbearing to left upper extremity Objective Vital signs: Vital Signs Temp Pulse Resp BP Pulse Ox 11/18/17 11:32 98.2 F 105 20 100/82 93 11/18/17 06:59 98.2 F 94 20 109/79 11/18/17 04:53 24 92 11/18/17 04:00 98 F 23 114/71 95 11/18/17 02:00 28 117/83 11/17/17 23:57 20 97 11/17/17 23:30 98 22 11/17/17 23:24 99.6 F 96 25 97/70 97 11/17/17 22:00 29 97/70 94 11/17/17 20:42 34 93 11/17/17 20:10 98.2 F 100 29 115/72 91 11/17/17 19:38 34 93 11/17/17 16:18 16 92 Intake and Output 11/17/17 11/18/17 11/18/17 23:59 07:59 15:59 Intake Total 1000 / 1000 250 / 250 Output Total 460 / 460 150 / 150 Balance 540 / 540 100 / 100 Intake: IV Fluids 1000 / 1000 Lactated Ringers 1,000 ML @ 75 1000 / 1000 mls/hr IVC .[id number] ANAYA Rx#: [id number] Oral 250 / 250 Output: Catheter 460 / 460 150 / 150 Other: Blood Glucose* 162 252 - Labs CBC & BMP: 11/18/17 04:00 11/18/17 05:30 Labs: Abnormal lab results WBC 19.7 K/mcL (4.3-11.1) H 11/18/17 04:00 RBC 3.29 M/mcL (3.82-4.97) L 11/18/17 04:00 Hgb 10.9 g/dL (11.5-15.4) L 11/18/17 04:00 Hct 32.0 % (35.3-44.9) L 11/18/17 04:00 Neutrophils # 17.8 K/mcL (1.6-8.9) H 11/18/17 04:00 Nucleated RBCs/100 WBC 0.2 /100 WBC (0) H 11/18/17 04:00 PT 12.7 Seconds (9.4-12.1) H 11/17/17 18:20 D-Dimer 957 ng/mLFEU (0-500) H 11/17/17 18:20 Sodium 133 mEq/L (136-145) L 11/18/17 05:30 Carbon Dioxide 22 mEq/L (23-29) L 11/18/17 05:30 BUN 35 mg/dL (8-23) H 11/18/17 05:30 BUN/Creatinine Ratio 40 (6-26) H 11/18/17 05:30 Glucose 175 mg/dL (70-105) H 11/18/17 05:30 POC Glucose 162 mg/dL (70-99) H 11/17/17 16:45 Calcium 8.1 mg/dL (8.6-10.3) L 11/18/17 05:30 Lactate Dehydrogenase 116 Units/L (140-271) L 11/18/17 12:30 Troponin I 0.04 ng/mL (< 0.04) H* 11/17/17 23:45 Serum Total Protein 4.9 g/dL (6.4-8.9) L 11/18/17 05:30 Albumin 2.6 g/dL (3.5-5.7) L 11/18/17 05:30 Globulin 2.3 g/dL (2.4-3.5) L 11/18/17 05:30 Consult Discharge Plan - Plan Referrals: Jena Roland, MARY [Primary Care Provider] - Prescriptions: Oxycodone HCl/Acetaminophen [Percocet 5-325 mg Tablet] 1 each PO Q6HR PRN 7 Days #28 tablet PRN Reason: Pain
[2017-11-18 17:43] LABS: Appearance of Pleural Fl Cloudy (Clear)
[2017-11-18 17:44] LABS: RBC,Pleural Fluid < 0.002 M/mcL
[2017-11-18 18:44] LABS: Amylase,Pleural Fluid 27 Units/L (No Ref Range); Glucose,Pleural Fluid 192 mg/dL (No Ref Range); LDH,Pleural Fluid 104 Units/L (No Ref Range); Total Protein,Pleural Fluid < 3.0 g/dL (No Ref Range)
[2017-11-18] MEDS: *HR* OxyCODONE Immed Rel 5 MG TABLET PO PRN (21:24)
[2017-11-19 06:27] LABS: Basophils % 0.2 %; Eosinophils # 0.2 K/mcL (0.0-0.6); Eosinophils % 0.9 %; Hematocrit 27.9 % (35.3-44.9); Hemoglobin 9.6 g/dL (11.5-15.4); Immature Granulocytes % 1.3 % (0-4); Lymphocytes # 1.6 K/mcL (0.6-4.6); Lymphocytes % 9.7 %; Mean Corpuscular HGB Conc 34.4 g/dL (31.6-35.5); Mean Corpuscular Hemoglobin 33.6 pg (28.0-33.3); Mean Corpuscular Volume 97.6 fL (83.0-100.0); Mean Platelet Volume 10.2 fL (9.4-12.4); Monocytes # 1.5 K/mcL (0.0-1.3); Monocytes % 8.8 %; Neutrophils # 13.3 K/mcL (1.6-8.9); Nucleated Red Blood Cells 0.6 /100 WBC (0); Platelet Count 297 K/mcL (140-400); Red Blood Count 2.86 M/mcL (3.82-4.97); Red Cell Distribution Width 13.9 % (11.5-14.5); Segmented Neutrophils % 79.1 %
--- NOTE | 2017-11-19 06:36 | Pulmonology Progress Note ---
Date of Encounter: 11/19/17 Time of Encounter: 06:36 Assessment and Plan (1) Pleural effusion Current Visit: Yes Status: Acute Overall picture is consistent with chylous effusion (chylothorax likely secondary to trauma) but triglycerides are pending to solidify diagnosis. I suspect she will benefit from repeat thoracentesis in the next 24-48 hours the pulmonary consult service will continue to follow her for this reason I suspect she will need lymphangiography we will discuss with the radiologist tomorrow O2 Sats are stable today and feels comfortable (2) Hypoxia Current Visit: Yes Status: Acute Continue supplemental oxygen to keep oxygen saturation around 92% and BiPAP as needed (3) Pneumonia Current Visit: Yes Status: Acute She is on empiric antimicrobial therapy cultures thus far negative white count trending down Qualifiers: Pneumonia type: due to unspecified organism Laterality: right Lung location: lower lobe of lung Qualified Code(s): J18.1 - Lobar pneumonia, unspecified organism Subjective Principal diagnosis: Left distal humerus fracture Interval history: Status post thoracentesis yesterday which was notable for about 1000 mL of milky fluid (there was significant residual fluid within the pleural space should be noted) radiographically no evidence of pneumothorax and patient did very well without complication. Her breathing has improved tremendously and oxygen requirement is also been able to be decreased she remains afebrile Objective PUL Vital signs: Last Vital Signs Temp 98.2 F 11/19/17 03:34 Pulse 91 11/19/17 03:34 Resp 18 11/19/17 03:34 BP 108/72 11/19/17 03:34 Pulse Ox 98 11/19/17 03:34 General appearance: no acute distress Eyes: nonicteric ENT: oropharynx moist Neck: supple Effort: normal Auscultation: bilateral: diminished breath sounds, rales Cardiovascular: regular rate and rhythm Gastrointestinal: normoactive bowel sounds Extremities: edema Gait: other (Status post left arm fracture repair in splint) normal mental status, non-focal exam mood appropriate Results - Laboratory Findings CBC and BMP: 11/19/17 04:00 11/19/17 04:00 PT/INR, D-dimer PT 12.7 Seconds (9.4-12.1) H 11/17/17 18:20 D-Dimer 957 ng/mLFEU (0-500) H 09/21/18 18:20 Abnormal lab findings: Abnormal lab results WBC 16.8 K/mcL (4.3-11.1) H 11/19/17 04:00 RBC 2.86 M/mcL (3.82-4.97) L 11/19/17 04:00 Hgb 9.6 g/dL (11.5-15.4) L 11/19/17 04:00 Hct 27.9 % (35.3-44.9) L 11/19/17 04:00 MCH 33.6 pg (28.0-33.3) H 11/19/17 04:00 Neutrophils # 13.3 K/mcL (1.6-8.9) H 11/19/17 04:00 Monocytes # 1.5 K/mcL (0.0-1.3) H 11/19/17 04:00 Nucleated RBCs/100 WBC 0.6 /100 WBC (0) H 11/19/17 04:00 PT 12.7 Seconds (9.4-12.1) H 11/17/17 18:20 D-Dimer 957 ng/mLFEU (0-500) H 11/17/17 18:20 Sodium 133 mEq/L (136-145) L 11/18/17 05:30 Carbon Dioxide 22 mEq/L (23-29) L 11/18/17 05:30 BUN 35 mg/dL (8-23) H 11/18/17 05:30 BUN/Creatinine Ratio 40 (6-26) H 11/18/17 05:30 Glucose 175 mg/dL (70-105) H 11/18/17 05:30 POC Glucose 174 mg/dL (70-99) H 11/18/17 16:06 Calcium 8.1 mg/dL (8.6-10.3) L 11/18/17 05:30 Lactate Dehydrogenase 116 Units/L (140-271) L 11/18/17 12:30 Troponin I 0.04 ng/mL (< 0.04) H* 11/17/17 23:45 Serum Total Protein 4.9 g/dL (6.4-8.9) L 11/18/17 05:30 Albumin 2.6 g/dL (3.5-5.7) L 11/18/17 05:30 Globulin 2.3 g/dL (2.4-3.5) L 11/18/17 05:30 Pleural Appearance Cloudy (Clear) A 11/18/17 12:25 - Microbiology Findings Microbiology Findings: Microbiology, Last 48 Hours 11/18/17 12:25 Gram Stain - Final Pleural Fluid 11/17/17 12:36 Blood Culture - Preliminary Peripheral Venipuncture Culture is incubating and being continuously monitored for growth. Final report to follow. 11/17/17 12:43 Blood Culture - Preliminary Peripheral Venipuncture Culture is incubating and being continuously monitored for growth. Final report to follow. - Clinical Findings Intake & Output: Intake & Output 11/18/17 11/18/17 11/19/17 15:59 23:59 07:59 Intake Total 360 / 360 0 / 0 Output Total 1000 / 1000 325 / 325 150 / 150 Balance -1000 / -1000 35 / 35 -150 / -150 Consult Discharge Plan - Plan Referrals: Jena Roland, SPOUT [employer]ITIONER [Primary Care Provider] - Prescriptions: Oxycodone HCl/Acetaminophen [Percocet 5-325 mg Tablet] 1 each PO Q6HR PRN 7 Days #28 tablet PRN Reason: Pain
[2017-11-19 07:00] LABS: Potassium 4.4 mEq/L (3.5-5.1)
[2017-11-19] MEDS: Insulin LISPRO 300 UNITS/3 ML VIAL SQ SCH ×4 (07:53→21:55)
[2017-11-19] MEDS: Rivastigmine Tartrate (oral) 1.5 MG CAPSULE PO SCH ×2 (08:06→19:37)
[2017-11-19] MEDS: *HR* Enoxaparin 40 MG/0.4 ML SYRINGE SQ SCH (08:06)
[2017-11-19] MEDS: Aspirin Enteric Coated 81 MG Tablet PO SCH (08:06)
[2017-11-19] MEDS: Cholecalciferol (D-3) 1,000 UNIT TABLET PO SCH (08:06)
[2017-11-19] MEDS: cefTRIAXone 2,000 MG in Water for inj. (sterile) 20 ML 20 ML IVP SCH (08:06)
[2017-11-19] MEDS: Gabapentin 300 MG CAPSULE PO SCH ×3 (08:06→19:37)
[2017-11-19] MEDS: Azithromycin 500 MG in D5% in Water 250 ML IVPB SCH (08:07)
--- NOTE | 2017-11-19 09:04 | Internal Med Progress Note ---
Hospitalist Progress Note - Encounter Date of Encounter: 11/19/17 Time of Encounter: 09:03 - Subjective Interval History: 82 F admitted by orthopedics for traumatic R humeral fracture, s/p ORIF on 11/15 Hospitalist team was consulted for shortness of breath and decreased urinary output. Incidental finding of bilateral pleural effusion and right lower lobe pneumonia. Patient was transferred to stepdown unit due to acute hypoxic respiratory failure Pulmonology was consulted for thoracentesis, input appreciated s/p thoracentensis 11/18 with chylothorax, ~1L Feels much improvement in resp status today, cultures pending, pleural fluid amylase is WNL, lipase is pending. Leukocytosis slowly improving - Exam Vitals: Temp Pulse Resp BP Pulse Ox 98.4 F 93 18 105/65 97 11/19/17 07:38 11/19/17 07:38 11/19/17 07:38 11/19/17 07:38 11/19/17 07:38 Exam: Constitutional: Vitals as noted. Conversant. Not in distress,L arm sling Eyes exam: Sclera white, conjunctiva clear, no lid lag, KARINA. ENT exam: Moist mucus membranes. No JVD, carotid bruit, no cervical lymphadenopathy. no thyromegaly or mass. Respiratory exam: Coarse breath sounds with diminished breath sounds in both lung bases Cardiovascular exam: RRR, +S1, +S2. no murmur, gallop, rubs. No chest wall tenderness GI/Abdominal exam: Soft, Non-tender, Non-distended, normal bowel sounds, soft, no peritoneal signs. no organomegaly or mass appreciated. no hernia. Musculoskeletal exam: full ROM, no atrophy noted. Lt arm sling noted. no edema or cyanosis, warm, pulses palpable and symmetrical in UE/LE. no calf tenderness. Neurological exam: AO X3, CN II-XII grossly intact, grossly normal sensory exam. Increase muscle rigidity. Skin exam: Multiple bruises and ecchymosis. Pych: Normal affect. - Assessment and Plan (1) Sepsis Current Visit: Yes Status: Acute Assessment and Plan: met sepsis criteria with tachypnea, tachycardia, new leukocytosis with WBC of 19 ,700 CXR and CTA significant for RLL PNA with bilateral pleural effusions Blood cultures drawn 11/17, so far negative Continue Ceftriaxone 2g daily Continue Azithromycin 500mg IV daily Continue O2 Follow sputum culture Follow legionella Ag and Strep Ag, requested, pending Continue to monitor (2) Essential hypertension Current Visit: Yes Status: Chronic Assessment and Plan: Medications held due to low blood pressure Will resume with improvement (3) Diabetes mellitus, type 2 Current Visit: Yes Status: Chronic Assessment and Plan: Fingersticks acceptable continue sliding scale insulin. (4) Supracondylar fracture of humerus Current Visit: Yes Status: Inactive Assessment and Plan: POD 4 Management per ortho Ensure pain control (5) Decreased urine output Current Visit: Yes Status: Acute Assessment and Plan: UP improving Continue to monitor UO Strict I/Os Discontinue Dang 11/20 a.m (6) DVT prophylaxis Current Visit: Yes Status: Acute Assessment and Plan: On Lovenox, continue same (7) Chest pain Current Visit: Yes Status: Resolved Assessment and Plan: Now resolved Patient developed acute substernal chest pain this morning, associated with hypoxia and hypotension with no tachycardia. She has a history of quadruple bypass, initial EKG showed sinus rhythm with left anterior fascicular block with no ST segment changes. Initial troponin negative X2, 3rd set 0.04 Patient was wheezing diffusely at this time, improved with DuoNeb treatment Continue current home medications Echocardiogram done on admission showed multiple wall motion hypokinesis CTA with acute devpt of pleural effusion Continue supportive care, pulm eval for thoracentensis, input appreciated (8) Coronary artery disease Current Visit: Yes Status: Chronic Assessment and Plan: See chest pain (9) Pneumonia Current Visit: Yes Status: Acute Assessment and Plan: Send admitted to this facility 11/15 for left humeral fracture post ORIF. Developed acute chest pain this a.m., associated with hypoxia requiring 2-3 L of oxygen. CXR and CTA shows a right lower lobe opacity with pleural effusion s/p thoracentrnsis with chylothorax 11/18, work up pending Continue ceftriaxone and azithromycin IV. (10) Hypoxia Current Visit: Yes Status: Acute Assessment and Plan: Likely due to pneumonia with right sided pleural effusion Continue management as an pneumonia Continue oxygen supplementation s/p therapeutic and diagnostic thoracentensis,pulmonology input appreciated (11) Pleural effusion Current Visit: Yes Status: Acute Assessment and Plan: See PNA - Time Spent with Patient Total time spent is greater than 50% in coordination of care (as documented) at patient's floor/unit and/or counseling patient: Plan of Care Discussed with: patient Internal Medicine: Result - Labs CBC & Chem 7: 11/19/17 04:00 11/19/17 04:00 Labs: Short CBC 11/19/17 Range/Units 04:00 WBC 16.8 H (4.3-11.1) K/mcL Hgb 9.6 L (11.5-15.4) g/dL Hct 27.9 L (35.3-44.9) % Plt Count 297 (140-400) K/mcL Neutrophils # 13.3 H (1.6-8.9) K/mcL BMP 11/19/17 04:00 Sodium 132 L Potassium 4.4 Chloride 103 Carbon Dioxide 22 L BUN 45 H Creatinine 1.10 Glucose 137 H Calcium 8.0 L - ABG Interpretation ABG results: PT/INR, D-dimer PT 12.7 Seconds (9.4-12.1) H 11/17/17 18:20 D-Dimer 957 ng/mLFEU (0-500) H 11/17/17 18:20 - Impressions Impressions Chest X-Ray 11/18/17 12:30 IMPRESSION: 1. Stable appearance of bilateral pleural effusions larger on the right. 2. Stable bilateral interstitial edema and pulmonary consolidation. 3. No pneumothorax. D/ / 11/18/2017 14:40:56 Isma Humphrey MD / rita Interpreting Provider: Isma Humphrey MD Consult Discharge Plan - Plan Referrals: Jena Roland, [employer] [Primary Care Provider] - Prescriptions: Oxycodone HCl/Acetaminophen [Percocet 5-325 mg Tablet] 1 each PO Q6HR PRN 7 Days #28 tablet PRN Reason: Pain (1) Sepsis Qualifiers: Sepsis type: sepsis due to unspecified organism Qualified Code(s): A41.9 - Sepsis, unspecified organism (3) Diabetes mellitus, type 2 Qualifiers: Diabetes mellitus care home insulin use: without care home use Diabetes mellitus complication status: without complication Qualified Code(s): E11.9 - Type 2 diabetes mellitus without complications (4) Supracondylar fracture of humerus Qualifiers: Encounter type: initial encounter Fracture type: closed Laterality: left Qualified Code(s): S42.412A - Displaced simple supracondylar fracture without intercondylar fracture of left humerus, initial encounter for closed fracture (7) Chest pain Qualifiers: Chest pain type: unspecified Qualified Code(s): R07.9 - Chest pain, unspecified (8) Coronary artery disease Qualifiers: Coronary Disease-Associated Artery/Lesion type: bypass graft [place] vs. transplanted heart: [place] heart Associated angina: with other forms of angina Qualified Code(s): I25.708 - Atherosclerosis of coronary artery bypass graft(s ), unspecified, with other forms of angina pectoris (9) Pneumonia Qualifiers: Pneumonia type: due to unspecified organism Laterality: right Lung location : lower lobe of lung Qualified Code(s): J18.1 - Lobar pneumonia, unspecified organism
[2017-11-19] MEDS: Ipratropium/Albuterol Neb 3 ML IH PRN (09:49)
[2017-11-19] MEDS: *HR* HYDROcodone/Acet 5/325 mg TABLET PO PRN ×2 (11:00→21:41)
--- NOTE | 2017-11-19 21:23 | Orthopedics Progress Note ---
Date of Encounter: 11/19/17 Time of Encounter: 21:22 Subjective Principal diagnosis: Left distal humerus fracture Interval history: Patient without complaints. She is neurovascularly intact with regard to her bilateral upper extremities. Able to fire all digits with brisk capillary refill. Pulmonary issue stable after thoracentesis. Assessment stable. Discharge planning per Dr. Nunn and hospitalist service. Objective Vital signs: Vital Signs Temp Pulse Resp BP Pulse Ox 11/19/17 20:55 98.6 F 99 16 111/60 96 11/19/17 20:53 98.6 F 97 16 111/60 96 11/19/17 16:24 98.8 F 91 18 116/69 99 11/19/17 11:35 98.7 F 94 18 100/68 96 11/19/17 09:51 18 94 11/19/17 07:38 98.4 F 93 18 105/65 97 11/19/17 03:34 98.2 F 91 18 108/72 98 11/18/17 23:24 97.2 F L 94 15 111/75 96 Intake and Output 11/19/17 11/19/17 11/19/17 07:59 15:59 23:59 Intake Total 0 / 0 120 / 120 120 / 120 Output Total 150 / 150 300 / 300 Balance -150 / -150 120 / 120 -180 / -180 Intake: Oral 0 / 0 120 / 120 120 / 120 Output: Catheter 150 / 150 300 / 300 Urethral (Dang) 150 / 150 Other: Meal Breakfast Dinner Percent of Meal Consumed 10% 20% Blood Glucose* 127 184 158 - Labs CBC & BMP: 11/19/17 04:00 11/19/17 04:00 Labs: Abnormal lab results WBC 16.8 K/mcL (4.3-11.1) H 11/19/17 04:00 RBC 2.86 M/mcL (3.82-4.97) L 11/19/17 04:00 Hgb 9.6 g/dL (11.5-15.4) L 11/19/17 04:00 Hct 27.9 % (35.3-44.9) L 11/19/17 04:00 MCH 33.6 pg (28.0-33.3) H 11/19/17 04:00 Neutrophils # 13.3 K/mcL (1.6-8.9) H 11/19/17 04:00 Monocytes # 1.5 K/mcL (0.0-1.3) H 11/19/17 04:00 Nucleated RBCs/100 WBC 0.6 /100 WBC (0) H 11/19/17 04:00 PT 12.7 Seconds (9.4-12.1) H 11/17/17 18:20 D-Dimer 957 ng/mLFEU (0-500) H 11/17/17 18:20 Sodium 132 mEq/L (136-145) L 11/19/17 04:00 Carbon Dioxide 22 mEq/L (23-29) L 11/19/17 04:00 BUN 45 mg/dL (8-23) H 11/19/17 04:00 Est GFR ( Amer) 58 (> 60) L 11/19/17 04:00 Est GFR (Non-Af Amer) 48 (> 60) L 11/19/17 04:00 BUN/Creatinine Ratio 41 (6-26) H 11/19/17 04:00 Glucose 137 mg/dL (70-105) H 11/19/17 04:00 POC Glucose 128 mg/dL (70-99) H 11/19/17 16:28 Calcium 8.0 mg/dL (8.6-10.3) L 11/19/17 04:00 Lactate Dehydrogenase 116 Units/L (140-271) L 11/18/17 12:30 Troponin I 0.04 ng/mL (< 0.04) H* 11/17/17 23:45 Serum Total Protein 4.9 g/dL (6.4-8.9) L 11/18/17 05:30 Albumin 2.6 g/dL (3.5-5.7) L 11/18/17 05:30 Globulin 2.3 g/dL (2.4-3.5) L 11/18/17 05:30 Pleural Appearance Cloudy (Clear) A 11/18/17 12:25 Consult Discharge Plan - Plan Referrals: Jena Roland, MARY [Primary Care Provider] - Prescriptions: Oxycodone HCl/Acetaminophen [Percocet 5-325 mg Tablet] 1 each PO Q6HR PRN 7 Days #28 tablet PRN Reason: Pain
[2017-11-20] MEDS: *HR* Enoxaparin 40 MG/0.4 ML SYRINGE SQ SCH (04:44)
[2017-11-20] MEDS: *HR* HYDROcodone/Acet 5/325 mg TABLET PO PRN ×3 (04:46→20:41)
[2017-11-20 05:05] LABS: Basophils % 0.2 %; Eosinophils # 0.4 K/mcL (0.0-0.6); Eosinophils % 2.4 %; Hematocrit 24.1 % (35.3-44.9); Hemoglobin 8.2 g/dL (11.5-15.4); Immature Granulocytes % 1.2 % (0-4); Lymphocytes # 1.6 K/mcL (0.6-4.6); Mean Corpuscular Hemoglobin 33.2 pg (28.0-33.3); Mean Corpuscular Volume 97.6 fL (83.0-100.0); Monocytes # 1.2 K/mcL (0.0-1.3); Monocytes % 8.1 %; Neutrophils # 11.5 K/mcL (1.6-8.9); Nucleated Red Blood Cells 0.3 /100 WBC (0); Platelet Count 274 K/mcL (140-400); Red Blood Count 2.47 M/mcL (3.82-4.97); Red Cell Distribution Width 14.3 % (11.5-14.5); Segmented Neutrophils % 77.1 %
[2017-11-20 05:31] LABS: BUN/Creatinine Ratio 54 (6-26); Blood Urea Nitrogen 44 mg/dL (8-23); Calcium 8.3 mg/dL (8.6-10.3); Carbon Dioxide 25 mEq/L (23-29); Chloride 103 mEq/L (98-107); Glucose 130 mg/dL (70-105); Osmolality,Calculated 289 (280-300); Sodium 133 mEq/L (136-145); eGFR For Non-African Americans > 60 (> 60)
[2017-11-20] MEDS: Aspirin Enteric Coated 81 MG Tablet PO SCH (08:47)
[2017-11-20] MEDS: Cholecalciferol (D-3) 1,000 UNIT TABLET PO SCH (08:47)
[2017-11-20] MEDS: Gabapentin 300 MG CAPSULE PO SCH ×3 (08:47→20:41)
[2017-11-20] MEDS: Rivastigmine Tartrate (oral) 1.5 MG CAPSULE PO SCH ×2 (08:48→20:41)
[2017-11-20] MEDS: cefTRIAXone 2,000 MG in Water for inj. (sterile) 20 ML 20 ML IVP SCH (08:48)
[2017-11-20] MEDS: Azithromycin 500 MG in D5% in Water 250 ML IVPB SCH (08:48)
[2017-11-20] MEDS: Insulin LISPRO 300 UNITS/3 ML VIAL SQ SCH ×4 (08:49→20:41)
--- NOTE | 2017-11-20 09:29 | Pulmonology Progress Note ---
<Yanick White - Last Filed: 11/20/17 16:22> Date of Encounter: 11/20/17 Time of Encounter: 09:30 Assessment and Plan (1) Acute respiratory failure with hypoxia Current Visit: Yes Status: Acute - Likely due to pneumonia and bilateral pleural effusion (Right more than the left) -Patient is status post thoracentesis with drainage of 1 L of chylous fluid. -Currently on day 3 of Rocephin and Azithromycin, patient is currently on 2L NC satting > 88% - Titrate oxygen for sPO2> 88% (2) Pleural effusion Current Visit: Yes Status: Acute - Patient has a chylous effusion, she is s/p thoracentesis which drained 1L chylous fluid -Etiology unclear at the moment : likely due to trauma after a recent fall, patient denies any history of any nonlymphomatous malignant neoplasia like primary lung cancer, mediastinal , metastatic extrathoracic malignancies, sarcoma or leukemia. She denies any Hx of mitral stenosis, thyroid goitre, sarcoidosis, amyloidosis, lupus, throacic aortic aneurysms , cirrhosis, or protein -losing enteropathy. - on physical exam, patient endorses no shortness of breath, currently on 2L NC satting at 92% - Her pleural triglycerides were 480 mg/dL , Cholesterol : 66 suggesting a high likelihood that the fluid is chyle. - the ratio of pleural fluid cholesterol to triglyceride is < 1 which is another evidence that the pleural fluid is chyle. -Started Octreotide 50 mcg q8h IVP - Recommended Medium chain triglycerides diet. -LFTs, Immunoglobulins, CEA, CT abdomen/pelvis pending - Will consider Lymphangiography if the above studies are normal (3) Pneumonia Current Visit: Yes Status: Acute - Chest x-ray was positive for right lung base opacity with concerns for pneumonia. -Currently she's on day 3 of Rocephin 2000 mg and Zithromax 500 mg - her WBC is trending down 19.7 -> 16.8 -> 14.9, on physical exam there is mildly diminished lung sounds, no wheezing, rhonchi or rales - Cultures pending, Continue to monitor Qualifiers: Pneumonia type: due to unspecified organism Laterality: right Lung location: lower lobe of lung Qualified Code(s): J18.1 - Lobar pneumonia, unspecified organism Subjective Principal diagnosis: Left distal humerus fracture Interval history: Ms Boyle is a 82 y.o female with a PMHx of CABG, CVA, and Parkinson's disease who was put on a pulmonology consult because of SOB that developed 2 days ago with findings of right lower lobe opacity with pleural effusion on imaging. Patient was admitted to the hospital for workup of a supracondylar fracture of the humerus which happened secondary to fall. She underwent ORIF of the left distal humerus, was recovering very well postoperatively but for the last couple days until she developed shortness of breath. CTA showed large right- sided pleural effusion and less degree of left-sided pleural effusion. Patient is status post thoracentesis (11/18) with drainage of 1000 mL of cloudy yellow fluid with concerns for chylothorax. The fluid was sent for cytological studies and showed elevated triglycerides : 480 and cholesterol : 66 suggesting a high likelihood of chylothorax. Patient has no history of any nonlymphomatous malignant neoplasia like primary lung cancer, mediastinal , metastatic extrathoracis malignancies, sarcoma or leukemia. She denies any Hx of mitral stenosis, thyroid goitre, sarcoidosis, amyloidosis, lupus, throacic aortic aneurysms , cirrhosis, or protein -losing enteropathy. Patient recently fell and there is a possibility that her chylothorax could be secondary to her fall leading to nonpenetrating trauma to the neck, thorax and upper abdomen. Objective PUL Vital signs: Last Vital Signs Temp 98.3 F 11/20/17 07:27 Pulse 85 11/20/17 07:27 Resp 16 11/20/17 07:27 BP 108/52 11/20/17 07:27 Pulse Ox 95 11/20/17 07:27 General appearance: no acute distress (good mentation) Effort: normal Auscultation: bilateral: diminished breath sounds (mildly ) Percussion: bilateral: not dull Cardiovascular: regular rate and rhythm Gastrointestinal: normoactive bowel sounds Results - Laboratory Findings CBC and BMP: 11/20/17 04:50 11/20/17 04:50 PT/INR, D-dimer PT 12.7 Seconds (9.4-12.1) H 11/17/17 18:20 D-Dimer 957 ng/mLFEU (0-500) H 11/17/17 18:20 Abnormal lab findings: Abnormal lab results WBC 14.9 K/mcL (4.3-11.1) H 11/20/17 04:50 RBC 2.47 M/mcL (3.82-4.97) L 11/20/17 04:50 Hgb 8.2 g/dL (11.5-15.4) L 11/20/17 04:50 Hct 24.1 % (35.3-44.9) L 11/20/17 04:50 Neutrophils # 11.5 K/mcL (1.6-8.9) H 11/20/17 04:50 Nucleated RBCs/100 WBC 0.3 /100 WBC (0) H 11/20/17 04:50 PT 12.7 Seconds (9.4-12.1) H 11/17/17 18:20 D-Dimer 957 ng/mLFEU (0-500) H 11/17/17 18:20 Sodium 133 mEq/L (136-145) L 11/20/17 04:50 BUN 44 mg/dL (8-23) H 11/20/17 04:50 BUN/Creatinine Ratio 54 (6-26) H 11/20/17 04:50 Glucose 130 mg/dL (70-105) H 11/20/17 04:50 POC Glucose 158 mg/dL (70-99) H 11/19/17 20:57 Calcium 8.3 mg/dL (8.6-10.3) L 11/20/17 04:50 Lactate Dehydrogenase 116 Units/L (140-271) L 11/18/17 12:30 Troponin I 0.04 ng/mL (< 0.04) H* 11/17/17 23:45 Serum Total Protein 4.9 g/dL (6.4-8.9) L 11/18/17 05:30 Albumin 2.6 g/dL (3.5-5.7) L 11/18/17 05:30 Globulin 2.3 g/dL (2.4-3.5) L 11/18/17 05:30 Pleural Appearance Cloudy (Clear) A 11/18/17 12:25 - Microbiology Findings Microbiology Findings: Microbiology, Last 48 Hours 11/18/17 12:25 Gram Stain - Final Pleural Fluid Body Fluid Culture - Preliminary - Clinical Findings Intake & Output: Intake & Output 11/19/17 11/20/17 11/20/17 23:59 07:59 15:59 Intake Total 120 / 120 Output Total 300 / 300 350 / 350 Balance -180 / -180 -350 / -350 Consult Discharge Plan - Plan Referrals: Jena Roland, MARY [Primary Care Provider] - Prescriptions: Oxycodone HCl/Acetaminophen [Percocet 5-325 mg Tablet] 1 each PO Q6HR PRN 7 Days #28 tablet PRN Reason: Pain <EmmettjinasavanaGianfranco S - Last Filed: 11/20/17 20:16> Date of Encounter: 11/20/17 Objective PUL Vital signs: Last Vital Signs Temp 98.9 F 11/20/17 16:07 Pulse 89 11/20/17 16:07 Resp 16 11/20/17 16:07 BP 98/67 11/20/17 16:07 Pulse Ox 91 11/20/17 16:07 Results - Laboratory Findings CBC and BMP: 11/20/17 04:50 11/20/17 04:50 PT/INR, D-dimer PT 12.7 Seconds (9.4-12.1) H 11/17/17 18:20 D-Dimer 957 ng/mLFEU (0-500) H 11/17/17 18:20 Abnormal lab findings: Abnormal lab results WBC 14.9 K/mcL (4.3-11.1) H 11/20/17 04:50 RBC 2.47 M/mcL (3.82-4.97) L 11/20/17 04:50 Hgb 8.2 g/dL (11.5-15.4) L 11/20/17 04:50 Hct 24.1 % (35.3-44.9) L 11/20/17 04:50 Neutrophils # 11.5 K/mcL (1.6-8.9) H 11/20/17 04:50 Nucleated RBCs/100 WBC 0.3 /100 WBC (0) H 11/20/17 04:50 PT 12.7 Seconds (9.4-12.1) H 11/17/17 18:20 D-Dimer 957 ng/mLFEU (0-500) H 11/17/17 18:20 Sodium 133 mEq/L (136-145) L 11/20/17 04:50 BUN 44 mg/dL (8-23) H 11/20/17 04:50 BUN/Creatinine Ratio 54 (6-26) H 11/20/17 04:50 Glucose 130 mg/dL (70-105) H 11/20/17 04:50 POC Glucose 149 mg/dL (70-99) H 11/20/17 10:55 Calcium 8.3 mg/dL (8.6-10.3) L 11/20/17 04:50 Lactate Dehydrogenase 116 Units/L (140-271) L 11/18/17 12:30 Troponin I 0.04 ng/mL (< 0.04) H* 11/17/17 23:45 Serum Total Protein 4.9 g/dL (6.4-8.9) L 11/20/17 16:20 Albumin 2.9 g/dL (3.5-5.7) L 11/20/17 16:20 Globulin 2.0 g/dL (2.4-3.5) L 11/20/17 16:20 Pleural Appearance Cloudy (Clear) A 11/18/17 12:25 - Microbiology Findings Microbiology Findings: Microbiology, Last 48 Hours 11/18/17 12:25 Gram Stain - Final Pleural Fluid Body Fluid Culture - Preliminary - Clinical Findings Intake & Output: Intake & Output 11/20/17 11/20/17 11/20/17 07:59 15:59 23:59 Intake Total 200 / 200 240 / 240 Output Total 350 / 350 350 / 350 Balance -350 / -350 -150 / -150 240 / 240 - Attending Attestation I saw and evaluated this patient and my medical decision-making was reviewed with the Resident Physician. I agree with the documented findings, disposition and treatment plan as described except to the extent set forth below. We independently had [id number] contact with the patient Patient seen and examined at bedside Labs, radiology, chart personally reviewed. Chylous Pleural effusion : Try conservative management initially that this medium-chain triglyceride diet and start on somastatin . The chylothorax as low output contributed thoracentesis if present high output chylothorax might consider Pleurx catheter to avoid i repeated thoracentesis before doing the Pleurx catheter will do lymphangiography to see where the leak is coming from if she needs thoracic duct embolization of thoracic duct ligation, pleurodesis in that case will shift her to [facility] for further management. Low output chylothorax can respond to conservative management. The most likely etiologies traumatic versus nontraumatic not sure how Mr. traumatic causes playing a role she had a remote history of thoracic surgery was no recent thoracic surgery. Will need to rule out other nontraumatic causes were lymphoid malignancy versus non-lymphoid malignancy his main reason will do CT chest and abdomen pelvis with contrast to look for any sources for malignancy we will do a workup for possible multiple myeloma, will do a protein electrophoresis of the CT imaging comes negative will do a basic workup for cirrhosis of liver. Patient does not require thoracentesis today as a work of breathing and V/Q mismatch is stable with daily assess the need for repeat thoracentesis.
--- NOTE | 2017-11-20 10:26 | Internal Med Progress Note ---
Hospitalist Progress Note - Encounter Date of Encounter: 11/20/17 Time of Encounter: 10:26 - Subjective Interval History: 82 F admitted by orthopedics for traumatic R humeral fracture, s/p ORIF on 11/15 Hospitalist team was consulted for shortness of breath and decreased urinary output. Incidental finding of bilateral pleural effusion and right lower lobe pneumonia. Patient was transferred to stepdown unit due to acute hypoxic respiratory failure Pulmonology was consulted for thoracentesis, input appreciated s/p thoracentensis 11/18 with chylothorax, ~1L Feels much improvement in resp status today, cultures pending, pleural fluid amylase is WNL, lipase is pending. Leukocytosis slowly improving - Exam Vitals: Temp Pulse Resp BP Pulse Ox 98.3 F 85 16 108/52 95 11/20/17 07:27 11/20/17 07:27 11/20/17 07:27 11/20/17 07:27 11/20/17 07:27 Exam: Constitutional: Vitals as noted. Conversant. Not in distress,L arm sling Eyes exam: Sclera white, conjunctiva clear, no lid lag, KARINA. ENT exam: Moist mucus membranes. No JVD, carotid bruit, no cervical lymphadenopathy. no thyromegaly or mass. Respiratory exam: Coarse breath sounds with diminished breath sounds in both lung bases Cardiovascular exam: RRR, +S1, +S2. no murmur, gallop, rubs. No chest wall tenderness GI/Abdominal exam: Soft, Non-tender, Non-distended, normal bowel sounds, soft, no peritoneal signs. no organomegaly or mass appreciated. no hernia. Musculoskeletal exam: full ROM, no atrophy noted. Lt arm sling noted. no edema or cyanosis, warm, pulses palpable and symmetrical in UE/LE. no calf tenderness. Neurological exam: AO X3, CN II-XII grossly intact, grossly normal sensory exam. Increase muscle rigidity. Skin exam: Multiple bruises and ecchymosis. Pych: Normal affect. - Assessment and Plan (1) Sepsis Current Visit: Yes Status: Acute Assessment and Plan: Improving Met sepsis criteria with tachypnea, tachycardia, new leukocytosis with WBC of 19 ,700 CXR and CTA significant for RLL PNA with bilateral pleural effusions Blood cultures drawn 11/17, so far negative Continue Ceftriaxone 2g daily-day 3 Continue Azithromycin 500mg IV daily-day 3 Continue O2 Pleural fluid culture prelim negative Continue to monitor (2) Essential hypertension Current Visit: Yes Status: Chronic Assessment and Plan: Medications held due to low blood pressure Will resume with improvement (3) Diabetes mellitus, type 2 Current Visit: Yes Status: Chronic Assessment and Plan: Fingersticks acceptable continue sliding scale insulin. (4) Supracondylar fracture of humerus Current Visit: Yes Status: Inactive Assessment and Plan: POD 5 Management per ortho Ensure pain control (5) Decreased urine output Current Visit: Yes Status: Resolved Assessment and Plan: Resolved UO improving Discontinue Dang Continue to monitor (6) DVT prophylaxis Current Visit: Yes Status: Acute Assessment and Plan: On Lovenox, continue same (7) Chest pain Current Visit: Yes Status: Resolved Assessment and Plan: Now resolved Patient developed acute substernal chest pain this morning, associated with hypoxia and hypotension with no tachycardia. She has a history of quadruple bypass, initial EKG showed sinus rhythm with left anterior fascicular block with no ST segment changes. Initial troponin negative X2, 3rd set 0.04 Patient was wheezing diffusely at this time, improved with DuoNeb treatment Continue current home medications Echocardiogram done on admission showed multiple wall motion hypokinesis CTA with acute devpt of pleural effusion Continue supportive care, pulm eval for thoracentensis, input appreciated (8) Coronary artery disease Current Visit: Yes Status: Chronic Assessment and Plan: See chest pain (9) Pneumonia Current Visit: Yes Status: Acute Assessment and Plan: Send admitted to this facility 11/15 for left humeral fracture post ORIF. Developed acute chest pain 11/17, associated with hypoxia requiring 2-3 L of oxygen. CXR and CTA shows a right lower lobe opacity with pleural effusion s/p thoracentrnsis with chylothorax 11/18, work up pending Continue ceftriaxone and azithromycin IV-day 05/03. (10) Hypoxia Current Visit: Yes Status: Acute Assessment and Plan: Improving Likely due to pneumonia with right sided pleural effusion Continue management as an pneumonia Continue oxygen supplementation s/p therapeutic and diagnostic thoracentensis,pulmonology input appreciated (11) Pleural effusion Current Visit: Yes Status: Acute Assessment and Plan: Suspect Chylothorax Pulm eval noted See PNA - Time Spent with Patient Total time spent is greater than 50% in coordination of care (as documented) at patient's floor/unit and/or counseling patient: Plan of Care Discussed with: patient Internal Medicine: Result - Labs CBC & Chem 7: 11/20/17 04:50 11/20/17 04:50 Labs: Short CBC 11/20/17 Range/Units 04:50 WBC 14.9 H (4.3-11.1) K/mcL Hgb 8.2 L (11.5-15.4) g/dL Hct 24.1 L (35.3-44.9) % Plt Count 274 (140-400) K/mcL Neutrophils # 11.5 H (1.6-8.9) K/mcL BMP 11/20/17 04:50 Sodium 133 L Potassium 4.0 Chloride 103 Carbon Dioxide 25 BUN 44 H Creatinine 0.81 Glucose 130 H Calcium 8.3 L - ABG Interpretation ABG results: PT/INR, D-dimer PT 12.7 Seconds (9.4-12.1) H 11/17/17 18:20 D-Dimer 957 ng/mLFEU (0-500) H 11/17/17 18:20 Consult Discharge Plan - Plan Referrals: Jena Roland, [employer] [Primary Care Provider] - Prescriptions: Oxycodone HCl/Acetaminophen [Percocet 5-325 mg Tablet] 1 each PO Q6HR PRN 7 Days #28 tablet PRN Reason: Pain (1) Sepsis Qualifiers: Sepsis type: sepsis due to unspecified organism Qualified Code(s): A41.9 - Sepsis, unspecified organism (3) Diabetes mellitus, type 2 Qualifiers: Diabetes mellitus [employer] insulin use: without fpc use Diabetes mellitus complication status: without complication Qualified Code(s): E11.9 - Type 2 diabetes mellitus without complications (4) Supracondylar fracture of humerus Qualifiers: Encounter type: initial encounter Fracture type: closed Laterality: left Qualified Code(s): S42.412A - Displaced simple supracondylar fracture without intercondylar fracture of left humerus, initial encounter for closed fracture (7) Chest pain Qualifiers: Chest pain type: unspecified Qualified Code(s): R07.9 - Chest pain, unspecified (8) Coronary artery disease Qualifiers: Coronary Disease-Associated Artery/Lesion type: bypass graft [place] vs. transplanted heart: [place] heart Associated angina: with other forms of angina Qualified Code(s): I25.708 - Atherosclerosis of coronary artery bypass graft(s ), unspecified, with other forms of angina pectoris (9) Pneumonia Qualifiers: Pneumonia type: due to unspecified organism Laterality: right Lung location : lower lobe of lung Qualified Code(s): J18.1 - Lobar pneumonia, unspecified organism
[2017-11-20] MEDS ORDERED: Isovue-370 500 ML INFUS..BTL IV ONE (12:46)
[2017-11-20] MEDS: Acetaminophen 325 MG TABLET PO PRN (14:21)
[2017-11-20 14:55] LABS: Fluid Source for Cholesterol PLEURAL FLUID; Fluid Source for Triglycerides PLEURAL FLUID
[2017-11-20 15:09] LABS: Cholesterol,Body Fluid 66 mg/dL
[2017-11-20 15:10] LABS: Triglycerides,Body Fluid 480 mg/dL
[2017-11-20] MEDS: *HR* OxyCODONE Immed Rel 5 MG TABLET PO PRN (17:07)
[2017-11-20 17:08] LABS: Albumin 2.9 g/dL (3.5-5.7); Albumin/Globulin Ratio 1.5 (1.1-2.2); Bilirubin,Direct 0.1 mg/dL (0.0-0.2); Bilirubin,Indirect 0.3 mg/dL (0.0-1.2); Bilirubin,Total 0.4 mg/dL (0.3-1.0); Total Protein 4.9 g/dL (6.4-8.9)
--- NOTE | 2017-11-20 17:31 | Orthopedics Progress Note ---
Date of Encounter: 11/20/17 Time of Encounter: 17:29 Subjective Principal diagnosis: Left distal humerus fracture Interval history: S: Resting in bed comfortably. On step down for respiratory failure. Had pleural fluid aspirated. Minimal LUE pain well controlled. O: Afebrile on the vital signs are stable Left upper extremity in posterior long-arm splint Moderate puffiness to the digits She can grossly flex and extend the digits; radial nerve function intact Fingers are grossly sensate and well-perfused A: Post open reduction and internal fixation of the left distal humerus Pleural effusion. P: Appreciate hospitalist input regarding medical issues. Will defer decision to transfuse to hospitalist given medical comorbidities. Orthopedically stable for discharge when medically stable. PT/OT, mobilize when able, nonweightbearing to the left upper extremity, digital motion exercises to the left upper extremity. Objective Vital signs: Vital Signs Temp Pulse Resp BP Pulse Ox 11/20/17 16:07 98.9 F 89 16 98/67 91 11/20/17 10:52 98.8 F 88 16 107/57 100 11/20/17 07:27 98.3 F 85 16 108/52 95 11/20/17 05:04 97.8 F 85 16 113/59 100 11/20/17 04:17 97.8 F 85 16 113/59 100 11/20/17 00:52 98 F 100 16 108/67 96 11/20/17 00:48 98 F 95 16 108/67 96 11/19/17 20:55 98.6 F 99 16 111/60 96 11/19/17 20:53 98.6 F 97 16 111/60 96 Intake and Output 11/20/17 11/20/17 11/20/17 07:59 15:59 23:59 Intake Total 200 / 200 Output Total 350 / 350 350 / 350 Balance -350 / -350 -150 / -150 Intake: Oral 200 / 200 Output: Catheter 350 / 350 350 / 350 Other: Meal Lunch Percent of Meal Consumed 0% Blood Glucose* 122 149 150 - Labs CBC & BMP: 11/20/17 04:50 11/20/17 04:50 Labs: Abnormal lab results WBC 14.9 K/mcL (4.3-11.1) H 11/20/17 04:50 RBC 2.47 M/mcL (3.82-4.97) L 11/20/17 04:50 Hgb 8.2 g/dL (11.5-15.4) L 11/20/17 04:50 Hct 24.1 % (35.3-44.9) L 11/20/17 04:50 Neutrophils # 11.5 K/mcL (1.6-8.9) H 11/20/17 04:50 Nucleated RBCs/100 WBC 0.3 /100 WBC (0) H 11/20/17 04:50 PT 12.7 Seconds (9.4-12.1) H 11/17/17 18:20 D-Dimer 957 ng/mLFEU (0-500) H 11/17/17 18:20 Sodium 133 mEq/L (136-145) L 11/20/17 04:50 BUN 44 mg/dL (8-23) H 11/20/17 04:50 BUN/Creatinine Ratio 54 (6-26) H 11/20/17 04:50 Glucose 130 mg/dL (70-105) H 11/20/17 04:50 POC Glucose 149 mg/dL (70-99) H 11/20/17 10:55 Calcium 8.3 mg/dL (8.6-10.3) L 11/20/17 04:50 Lactate Dehydrogenase 116 Units/L (140-271) L 11/18/17 12:30 Troponin I 0.04 ng/mL (< 0.04) H* 11/17/17 23:45 Serum Total Protein 4.9 g/dL (6.4-8.9) L 11/20/17 16:20 Albumin 2.9 g/dL (3.5-5.7) L 11/20/17 16:20 Globulin 2.0 g/dL (2.4-3.5) L 11/20/17 16:20 Pleural Appearance Cloudy (Clear) A 11/18/17 12:25 Consult Discharge Plan - Plan Referrals: Jena Roland CNP [Primary Care Provider] - Prescriptions: Oxycodone HCl/Acetaminophen [Percocet 5-325 mg Tablet] 1 each PO Q6HR PRN 7 Days #28 tablet PRN Reason: Pain
[2017-11-20] MEDS: Octreotide 50 MCG/ML SYRINGE IVP SCH (18:22)
[2017-11-20] MEDS ORDERED: Sennosides/Docusate Sodium TABLET PO PRN (18:27)
[2017-11-21 00:27] LABS: Bilirubin,Urine Negative (Negative); Blood,Urine Negative (Negative); Clarity,Urine Clear (Clear); Color,Urine Yellow (Yellow); Glucose,Urine (UA) Normal (Normal); Ketones,Urine Negative (Negative); Leukocyte Esterase,Urine Negative (Negative); Nitrite,Urine Negative (Negative); PH,Urine 6.5 pH Units (5.0-8.0); Protein,Urine Negative (Neg-Trace); Specific Gravity,Urine 1.017 (1.010-1.025); Urobilinogen,Urine Normal (Normal)
[2017-11-21] MEDS: Octreotide 50 MCG/ML SYRINGE IVP SCH ×2 (01:07→08:17)
[2017-11-21] MEDS: *HR* Enoxaparin 40 MG/0.4 ML SYRINGE SQ SCH (05:30)
[2017-11-21 05:52] LABS: Basophils % 0.4 %; Eosinophils # 0.4 K/mcL (0.0-0.6); Eosinophils % 3.5 %; Hematocrit 24.4 % (35.3-44.9); Hemoglobin 8.2 g/dL (11.5-15.4); Immature Granulocytes % 1.5 % (0-4); Lymphocytes # 1.2 K/mcL (0.6-4.6); Lymphocytes % 11.6 %; Mean Corpuscular HGB Conc 33.6 g/dL (31.6-35.5); Mean Corpuscular Hemoglobin 33.1 pg (28.0-33.3); Mean Corpuscular Volume 98.4 fL (83.0-100.0); Mean Platelet Volume 9.8 fL (9.4-12.4); Monocytes # 0.8 K/mcL (0.0-1.3); Monocytes % 7.3 %; Neutrophils # 7.9 K/mcL (1.6-8.9); Platelet Count 273 K/mcL (140-400); Red Blood Count 2.48 M/mcL (3.82-4.97); Red Cell Distribution Width 14.7 % (11.5-14.5); Segmented Neutrophils % 75.7 %
[2017-11-21 06:09] LABS: BUN/Creatinine Ratio 43 (6-26); Blood Urea Nitrogen 27 mg/dL (8-23); Calcium 8.4 mg/dL (8.6-10.3); Carbon Dioxide 26 mEq/L (23-29); Chloride 105 mEq/L (98-107); Glucose 125 mg/dL (70-105); Osmolality,Calculated 287 (280-300); Sodium 135 mEq/L (136-145); eGFR For Non-African Americans > 60 (> 60)
--- NOTE | 2017-11-21 07:47 | Orthopedics Progress Note ---
Date of Encounter: 11/21/17 Time of Encounter: 06:30 Subjective Principal diagnosis: Left distal humerus fracture Interval history: S: Resting in bed comfortably. On step down for respiratory failure, pneumonia, and pleural effusion; Minimal LUE pain well controlled. O: Afebrile on the vital signs are stable Left upper extremity in posterior long-arm splint Moderate puffiness to the digits She can grossly flex and extend the digits; radial nerve function intact Fingers are grossly sensate and well-perfused Hgb 8.2 A: Post open reduction and internal fixation of the left distal humerus Pleural effusion, pneumonia, respiratory failure P: Appreciate hospitalist input regarding medical issues. Will defer decision to transfuse to hospitalist given medical comorbidities. Orthopedically stable for discharge when medically stable. PT/OT, mobilize when able, nonweightbearing to the left upper extremity, digital motion exercises to the left upper extremity. Objective Vital signs: Vital Signs Temp Pulse Resp BP Pulse Ox 11/21/17 07:01 98.2 F 81 18 123/80 97 11/21/17 04:47 60 18 115/67 100 11/21/17 03:47 97.6 F 68 18 115/67 100 11/21/17 00:30 72 18 115/67 100 11/20/17 23:49 97.6 F 77 18 115/71 97 11/20/17 21:37 78 17 121/77 90 11/20/17 20:30 97.8 F 88 17 121/77 90 11/20/17 16:07 98.9 F 89 16 98/67 91 11/20/17 10:52 98.8 F 88 16 107/57 100 Intake and Output 11/20/17 11/20/17 11/21/17 15:59 23:59 07:59 Intake Total 200 / 200 240 / 240 Output Total 350 / 350 850 / 850 Balance -150 / -150 240 / 240 -850 / -850 Intake: Oral 200 / 200 240 / 240 Output: Urine 250 / 250 Straight Cath 600 / 600 Catheter 350 / 350 Other: Meal Lunch Dinner Percent of Meal Consumed 0% 100% Weight 65.4 kg Blood Glucose* 149 146 139 Patient Weight 11/21/17 23:59 Weight 65.4 kg - Labs CBC & BMP: 11/21/17 05:35 11/21/17 05:35 Labs: Abnormal lab results RBC 2.48 M/mcL (3.82-4.97) L 11/21/17 05:35 Hgb 8.2 g/dL (11.5-15.4) L 11/21/17 05:35 Hct 24.4 % (35.3-44.9) L 11/21/17 05:35 RDW 14.7 % (11.5-14.5) H 11/21/17 05:35 Nucleated RBCs/100 WBC 0.3 /100 WBC (0) H 11/20/17 04:50 PT 12.7 Seconds (9.4-12.1) H 11/17/17 18:20 D-Dimer 957 ng/mLFEU (0-500) H 11/17/17 18:20 Sodium 135 mEq/L (136-145) L 11/21/17 05:35 BUN 27 mg/dL (8-23) H 11/21/17 05:35 BUN/Creatinine Ratio 43 (6-26) H 11/21/17 05:35 Glucose 125 mg/dL (70-105) H 11/21/17 05:35 POC Glucose 150 mg/dL (70-99) H 11/20/17 16:11 Calcium 8.4 mg/dL (8.6-10.3) L 11/21/17 05:35 Lactate Dehydrogenase 116 Units/L (140-271) L 11/18/17 12:30 Troponin I 0.04 ng/mL (< 0.04) H* 11/17/17 23:45 Serum Total Protein 4.9 g/dL (6.4-8.9) L 11/20/17 16:20 Albumin 2.9 g/dL (3.5-5.7) L 11/20/17 16:20 Globulin 2.0 g/dL (2.4-3.5) L 11/20/17 16:20 Pleural Appearance Cloudy (Clear) A 11/18/17 12:25 Consult Discharge Plan - Plan Referrals: Jena Roland, MARY [Primary Care Provider] - Prescriptions: Oxycodone HCl/Acetaminophen [Percocet 5-325 mg Tablet] 1 each PO Q6HR PRN 7 Days #28 tablet PRN Reason: Pain
[2017-11-21] MEDS: Gabapentin 300 MG CAPSULE PO SCH ×3 (08:17→20:40)
[2017-11-21] MEDS: Azithromycin 500 MG in D5% in Water 250 ML IVPB SCH (08:17)
[2017-11-21] MEDS: Rivastigmine Tartrate (oral) 1.5 MG CAPSULE PO SCH ×2 (08:17→20:39)
[2017-11-21] MEDS: Cholecalciferol (D-3) 1,000 UNIT TABLET PO SCH (08:17)
[2017-11-21] MEDS: Aspirin Enteric Coated 81 MG Tablet PO SCH (08:17)
[2017-11-21] MEDS: cefTRIAXone 2,000 MG in Water for inj. (sterile) 20 ML 20 ML IVP SCH (08:18)
[2017-11-21] MEDS: Insulin LISPRO 300 UNITS/3 ML VIAL SQ SCH ×3 (08:19→17:21)
[2017-11-21 09:54] LABS: Thyroid Stimulating Hormone 1.152 mcIU/mL (0.340-5.600)
[2017-11-21 09:56] LABS: INR 1.1; Prothrombin Time 12.2 Seconds (9.4-12.1)
[2017-11-21 09:59] LABS: Activated Partial Thrombo Time 32.8 Seconds (26.0-36.0)
--- NOTE | 2017-11-21 09:59 | Pulmonology Progress Note ---
<Yanick White - Last Filed: 11/21/17 17:01> Date of Encounter: 11/21/17 Time of Encounter: 10:00 Assessment and Plan (1) Acute respiratory failure with hypoxia Current Visit: Yes Status: Acute - Likely due to pneumonia and bilateral pleural effusion (Right more than the left) -Patient underwent repeat L sided thoracentesis with drainage of ~ 700 mL of chylous fluid. -Currently on day 4 of Rocephin and Azithromycin, patient is currently on 2L NC satting > 88% - Titrate oxygen for sPO2> 88% (2) Pleural effusion Current Visit: Yes Status: Acute - Patient's most recent CT chest showed bilateral pleural effusion. She is s/p L sided thoracentesis which drained 700mL yellow colored fluid -Etiology unclear at the moment : Workup to rule out malignancy, cirrhosis, thyroid goitre goiter has been negative thus far. patient denies any history of any nonlymphomatous malignant neoplasia like primary lung cancer, mediastinal , metastatic extrathoracic malignancies, sarcoma or leukemia. She denies any Hx of mitral stenosis, thyroid goitre, sarcoidosis, amyloidosis, lupus, throacic aortic aneurysms , cirrhosis, or protein -losing enteropathy. - on physical exam, patient endorses no shortness of breath, currently on 2L NC satting at 92% - venous doppler studies were negative for any superior vena cava or subclavian vein thrombosis. - Pleural fluid has been sent for evaluation. Pleural triglycerdies, cholesterol pending -Continues to be on day 2 of Octreotide 50 mcg q8h SQ - Recommended Medium chain triglycerides diet. - Spoke to [facility] Department of IR about the possibility of getting lymphangiography to rule out any lymphatic leakage. (3) Pneumonia Current Visit: Yes Status: Acute - Previous Chest x-ray was positive for right lung base opacity with concerns for pneumonia. -Currently she's on day 3 of Rocephin 2000 mg and Zithromax 500 mg - her WBC is trending down 19.7 -> 16.8 -> 14.9 -> 10.4, on physical exam there is mildly diminished lung sounds, no wheezing, rhonchi or rales - Cultures pending, Continue to monitor Qualifiers: Pneumonia type: due to unspecified organism Laterality: right Lung location: lower lobe of lung Qualified Code(s): J18.1 - Lobar pneumonia, unspecified organism Subjective Principal diagnosis: Left distal humerus fracture Interval history: 11/21 no acute events overnight. Patient endorses no acute distress. She is currently on 2L NC satting > 88%. Her most recent imaging studies were negative for any masses or malignancy . Her LFTs, TSH, Free T4 were unremarkable. She does have a development of a bilateral pleural effusion with associated multifocal airspace disease . On physical exam she denies any SOB, chest pain, or cough. Patient underwent left sided thoracentesis and approximately 700 mL of yellow- colored pleural fluid was drained. The specimen has been sent for further studies. Patient tolerated procedure very well. Postprocedure x-ray looks good. Her right sided venous doppler studies were negative for any superior vena cava or a left subclavian vein thrombosis contributing to the chylothorax. Patient would benefit from lymphangiogram to rule out any potential lymphatic leaks. Spoke to [facility] department of Radiology and they would be more than happy to accept the patient and perform the procedure. 11/20 Ms Boyle is a 82 y.o female with a PMHx of CABG, CVA, and Parkinson's disease who was put on a pulmonology consult because of SOB that developed 2 days ago with findings of right lower lobe opacity with pleural effusion on imaging. Patient was admitted to the hospital for workup of a supracondylar fracture of the humerus which happened secondary to fall. She underwent ORIF of the left distal humerus, was recovering very well postoperatively but for the last couple days until she developed shortness of breath. CTA showed large right- sided pleural effusion and less degree of left-sided pleural effusion. Patient is status post thoracentesis (11/18) with drainage of 1000 mL of cloudy yellow fluid with concerns for chylothorax. The fluid was sent for cytological studies and showed elevated triglycerides : 480 and cholesterol : 66 suggesting a high likelihood of chylothorax. Patient has no history of any nonlymphomatous malignant neoplasia like primary lung cancer, mediastinal , metastatic extrathoracis malignancies, sarcoma or leukemia. She denies any Hx of mitral stenosis, thyroid goitre, sarcoidosis, amyloidosis, lupus, throacic aortic aneurysms , cirrhosis, or protein -losing enteropathy. Patient recently fell and there is a possibility that her chylothorax could be secondary to her fall leading to nonpenetrating trauma to the neck, thorax and upper abdomen. Objective PUL Vital signs: Last Vital Signs Temp 98.2 F 11/21/17 07:01 Pulse 81 11/21/17 07:01 Resp 18 11/21/17 07:01 BP 123/80 11/21/17 07:01 Pulse Ox 97 11/21/17 07:01 General appearance: no acute distress (A&O*3, good mentation) Auscultation: bilateral: diminished breath sounds (no wheezing or ronchi) Percussion: bilateral: not dull Cardiovascular: regular rate and rhythm Gastrointestinal: normoactive bowel sounds, soft, non-tender Extremities: no cyanosis, no edema, no clubbing (left upper extremiy has an arm splint, neurovascularyl intact) Results - Laboratory Findings CBC and BMP: 11/21/17 05:35 11/21/17 05:35 PT/INR, D-dimer PT 12.7 Seconds (9.4-12.1) H 11/17/17 18:20 D-Dimer 957 ng/mLFEU (0-500) H 11/17/17 18:20 Abnormal lab findings: Abnormal lab results RBC 2.48 M/mcL (3.82-4.97) L 11/21/17 05:35 Hgb 8.2 g/dL (11.5-15.4) L 11/21/17 05:35 Hct 24.4 % (35.3-44.9) L 11/21/17 05:35 RDW 14.7 % (11.5-14.5) H 11/21/17 05:35 Nucleated RBCs/100 WBC 0.3 /100 WBC (0) H 11/20/17 04:50 PT 12.7 Seconds (9.4-12.1) H 11/17/17 18:20 D-Dimer 957 ng/mLFEU (0-500) H 11/17/17 18:20 Sodium 135 mEq/L (136-145) L 11/21/17 05:35 BUN 27 mg/dL (8-23) H 11/21/17 05:35 BUN/Creatinine Ratio 43 (6-26) H 11/21/17 05:35 Glucose 125 mg/dL (70-105) H 11/21/17 05:35 POC Glucose 150 mg/dL (70-99) H 11/20/17 16:11 Calcium 8.4 mg/dL (8.6-10.3) L 11/21/17 05:35 Lactate Dehydrogenase 116 Units/L (140-271) L 11/18/17 12:30 Troponin I 0.04 ng/mL (< 0.04) H* 11/17/17 23:45 Serum Total Protein 4.9 g/dL (6.4-8.9) L 11/20/17 16:20 Albumin 2.9 g/dL (3.5-5.7) L 11/20/17 16:20 Globulin 2.0 g/dL (2.4-3.5) L 11/20/17 16:20 Pleural Appearance Cloudy (Clear) A 11/18/17 12:25 - Microbiology Findings Microbiology Findings: Microbiology, Last 48 Hours 11/18/17 12:25 Gram Stain - Final Pleural Fluid Body Fluid Culture - Preliminary - Clinical Findings Intake & Output: Intake & Output 11/20/17 11/21/17 11/21/17 23:59 07:59 15:59 Intake Total 240 / 240 Output Total 850 / 850 350 / 350 Balance 240 / 240 -850 / -850 -350 / -350 Weight 65.4 kg Consult Discharge Plan - Plan Referrals: Jena Roland, MARY [Primary Care Provider] - <Gianfranco Olivera - Last Filed: 11/21/17 19:39> Date of Encounter: 11/21/17 Objective PUL Vital signs: Last Vital Signs Temp 98.3 F 11/21/17 12:04 Pulse 69 11/21/17 16:00 Resp 18 11/21/17 12:04 BP 118/73 11/21/17 12:04 Pulse Ox 98 11/21/17 12:04 Results - Laboratory Findings CBC and BMP: 11/21/17 05:35 11/21/17 05:35 PT/INR, D-dimer PT 12.2 Seconds (9.4-12.1) H 11/21/17 09:15 D-Dimer 957 ng/mLFEU (0-500) H 11/17/17 18:20 Abnormal lab findings: Abnormal lab results RBC 2.48 M/mcL (3.82-4.97) L 11/21/17 05:35 Hgb 8.2 g/dL (11.5-15.4) L 11/21/17 05:35 Hct 24.4 % (35.3-44.9) L 11/21/17 05:35 RDW 14.7 % (11.5-14.5) H 11/21/17 05:35 Nucleated RBCs/100 WBC 0.3 /100 WBC (0) H 11/20/17 04:50 PT 12.2 Seconds (9.4-12.1) H 11/21/17 09:15 D-Dimer 957 ng/mLFEU (0-500) H 11/17/17 18:20 Sodium 135 mEq/L (136-145) L 11/21/17 05:35 BUN 27 mg/dL (8-23) H 11/21/17 05:35 BUN/Creatinine Ratio 43 (6-26) H 11/21/17 05:35 Glucose 125 mg/dL (70-105) H 11/21/17 05:35 POC Glucose 155 mg/dL (70-99) H 11/21/17 12:09 Calcium 8.4 mg/dL (8.6-10.3) L 11/21/17 05:35 Troponin I 0.04 ng/mL (< 0.04) H* 11/17/17 23:45 Serum Total Protein 5.1 g/dL (6.4-8.9) L 11/21/17 17:00 Albumin 2.9 g/dL (3.5-5.7) L 11/20/17 16:20 Globulin 2.0 g/dL (2.4-3.5) L 11/20/17 16:20 Pleural Appearance Cloudy (Clear) A 11/21/17 13:44 - Microbiology Findings Microbiology Findings: Microbiology, Last 48 Hours 11/18/17 12:25 Gram Stain - Final Pleural Fluid Body Fluid Culture - Final 11/21/17 00:01 Legionella Antigen - Final Urine,[place] Streptococcus pneumoniae Antigen (M - Final - Clinical Findings Intake & Output: Intake & Output 11/21/17 11/21/17 11/21/17 07:59 15:59 23:59 Intake Total 270 / 270 120 / 120 Output Total 850 / 850 550 / 550 Balance -850 / -850 -280 / -280 120 / 120 Weight 65.4 kg - Attending Attestation I saw and evaluated this patient and my medical decision-making was reviewed with the Resident Physician. I agree with the documented findings, disposition and treatment plan as described except to the extent set forth below. 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 Reviewed the case with interventional radiology patient mediastinum looks possible infiltration will benefit from lymphangiography to see the size of extravasation significant due to embolization on that area so far workup for malignancy is negative . Unfortunately we do not do lymphangiography in our institution recommended transfer to [facility] where the interventional radiologist can do lymphangiography so leak H2O at can be coiled discuss with the patient and and more leaning towards give it a try at [facility].Hospitalist to coordinate transfer.
[2017-11-21] MEDS: *HR* HYDROcodone/Acet 5/325 mg TABLET PO PRN ×2 (11:55→20:39)
--- NOTE | 2017-11-21 13:15 | Internal Med Progress Note ---
Hospitalist Progress Note - Encounter Date of Encounter: 11/21/17 Time of Encounter: 12:17 - Exam Vitals: Temp Pulse Resp BP Pulse Ox 98.3 F 74 18 118/73 98 11/21/17 12:04 11/21/17 12:04 11/21/17 12:04 11/21/17 12:04 11/21/17 12:04 Exam: Constitutional: Vitals as noted. Conversant. Not in distress,L arm sling Eyes exam: Sclera white, conjunctiva clear, no lid lag, KARINA. ENT exam: Moist mucus membranes. No JVD, carotid bruit, no cervical lymphadenopathy. no thyromegaly or mass. Respiratory exam: Coarse breath sounds with diminished breath sounds in both lung bases Cardiovascular exam: RRR, +S1, +S2. no murmur, gallop, rubs. No chest wall tenderness GI/Abdominal exam: Soft, Non-tender, Non-distended, normal bowel sounds, soft, no peritoneal signs. no organomegaly or mass appreciated. no hernia. Musculoskeletal exam: full ROM, no atrophy noted. Lt arm sling noted. no edema or cyanosis, warm, pulses palpable and symmetrical in UE/LE. no calf tenderness. Neurological exam: AO X3, CN II-XII grossly intact, grossly normal sensory exam. Increase muscle rigidity. Skin exam: Multiple bruises and ecchymosis. Pych: Normal affect. - Assessment and Plan (1) Chest pain Current Visit: Yes Status: Resolved (2) Coronary artery disease Current Visit: Yes Status: Chronic (3) Essential hypertension Current Visit: Yes Status: Chronic (4) Diabetes mellitus, type 2 Current Visit: Yes Status: Chronic (5) Supracondylar fracture of humerus Current Visit: Yes Status: Inactive (6) Decreased urine output Current Visit: Yes Status: Resolved (7) DVT prophylaxis Current Visit: Yes Status: Acute (8) Pneumonia Current Visit: Yes Status: Acute (9) Hypoxia Current Visit: Yes Status: Acute (10) Sepsis Current Visit: Yes Status: Acute (11) Pleural effusion Current Visit: Yes Status: Acute - Time Spent with Patient Total time spent is greater than 50% in coordination of care (as documented) at patient's floor/unit and/or counseling patient: Internal Medicine: Result - Labs CBC & Chem 7: 11/21/17 05:35 11/21/17 05:35 Labs: Short CBC 11/21/17 Range/Units 05:35 WBC 10.4 (4.3-11.1) K/mcL Hgb 8.2 L (11.5-15.4) g/dL Hct 24.4 L (35.3-44.9) % Plt Count 273 (140-400) K/mcL Neutrophils # 7.9 (1.6-8.9) K/mcL BMP 11/21/17 05:35 Sodium 135 L Potassium 4.0 Chloride 105 Carbon Dioxide 26 BUN 27 H Creatinine 0.63 Glucose 125 H Calcium 8.4 L Liver Function 11/20/17 Range/Units 16:20 Total Bilirubin 0.4 (0.3-1.0) mg/dL Direct Bilirubin 0.1 (0.0-0.2) mg/dL AST 17 (13-39) Units/L ALT 9 (7-52) Units/L Alkaline Phosphatase 57 (34-104) Units/L Albumin 2.9 L (3.5-5.7) g/dL Urine 11/21/17 Range/Units 00:01 Urine Color Yellow (Yellow) Urine Clarity Clear (Clear) Urine pH 6.5 (5.0-8.0) pH Units Ur Specific [place] 1.017 (1.010-1.025) Urine Protein Negative (Neg-Trace) mg/dL Urine Glucose (UA) Normal (Normal) mg/dL - ABG Interpretation ABG results: PT/INR, D-dimer PT 12.2 Seconds (9.4-12.1) H 11/21/17 09:15 D-Dimer 957 ng/mLFEU (0-500) H 11/17/17 18:20 - Impressions Impressions Chest CT 11/20/17 12:44 IMPRESSION: Bilateral pleural effusions with associated multifocal airspace disease. Pulmonary edema is favored. Small low-density renal lesions are likely cysts. Heterogeneously enlarged thyroid tissue. Correlate with ultrasound. Subcutaneous fat stranding raising the question of third-spacing of fluid. No abdominal or pelvic adenopathy. D/ / Jp Sierra / Jp Sierra Interpreting Provider: Jp Sierra Abdomen/Pelvis CT 09/24/18 12:46 IMPRESSION: Bilateral pleural effusions with associated multifocal airspace disease. Pulmonary edema is favored. Small low-density renal lesions are likely cysts. Heterogeneously enlarged thyroid tissue. Correlate with ultrasound. Subcutaneous fat stranding raising the question of third-spacing of fluid. No abdominal or pelvic adenopathy. D/ / Jp Sierra / Jp Sierra Interpreting Provider: Jp Seirra Consult Discharge Plan - Plan Referrals: Jena Roland [facility] [Primary Care Provider] - Prescriptions: Oxycodone HCl/Acetaminophen [Percocet 5-325 mg Tablet] 1 each PO Q6HR PRN 7 Days #28 tablet PRN Reason: Pain (1) Chest pain Qualifiers: Chest pain type: unspecified Qualified Code(s): R07.9 - Chest pain, unspecified (2) Coronary artery disease Qualifiers: Coronary Disease-Associated Artery/Lesion type: bypass graft [place] vs. 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 Diabetes mellitus complication status: without complication Qualified Code(s): E11.9 - Type 2 diabetes mellitus without complications (5) Supracondylar fracture of humerus Qualifiers: Encounter type: initial encounter Fracture type: closed Laterality: left Qualified Code(s): S42.412A - Displaced simple supracondylar fracture without intercondylar fracture of left humerus, initial encounter for closed fracture (8) Pneumonia Qualifiers: Pneumonia type: due to unspecified organism Laterality: right Lung location : lower lobe of lung Qualified Code(s): J18.1 - Lobar pneumonia, unspecified organism (10) Sepsis Qualifiers: Sepsis type: sepsis due to unspecified organism Qualified Code(s): A41.9 - Sepsis, unspecified organism
--- NOTE | 2017-11-21 13:49 | Procedure Note ---
<Yanick White - Last Filed: 11/21/17 14:23> Date of procedure: 11/21/17 Pre-op diagnosis: pleural effusion Post-op diagnosis: same Procedure: Informed consent was obtained from the patient. Time out performed. Area of pleural effusion was identified by ultrasound and site was marked. Area over left back was prepped and draped in normal sterile technique, and anesthetized using 3cc of lidocaine. A 20 guage needle/catheter was advanced into the pleural space and clear yellow fluid was seen in the syringe. Approximately 700cc of fluid was drained. Pt tolerated the procedure well, EBL was none. Post- procedure chest xray is pending. Specimen was sent to lab. Anesthesia: local Surgeon: Yanick White Was there an assistant service manager present: Yes Milking System Installer: Gianfranco Olivera Estimated blood loss (cc): 2 IV fluids (cc): 700 Specimen: Pleural fluid Condition: stable Disposition: floor <Gianfranco Olivera - Last Filed: 11/21/17 19:25> Procedure: I was present during the entire procedure assisted with critical portions of the procedure.
[2017-11-21 14:40] LABS: RBC,Pleural Fluid < 0.002 M/mcL
[2017-11-21 14:43] LABS: Amylase,Pleural Fluid 11 Units/L (No Ref Range); Glucose,Pleural Fluid 161 mg/dL (No Ref Range); LDH,Pleural Fluid 94 Units/L (No Ref Range); Total Protein,Pleural Fluid < 3.0 g/dL (No Ref Range)
[2017-11-21 15:22] LABS: Appearance of Pleural Fl Cloudy (Clear)
[2017-11-21] MEDS ORDERED: Octreotide 50 MCG/ML SYRINGE SQ SCH (16:00)
[2017-11-21 17:45] LABS: Lactate Dehydrogenase 171 Units/L (140-271); Total Protein 5.1 g/dL (6.4-8.9)
--- NOTE | 2017-11-21 17:58 | Discharge Summary ---
Orders not resulted at time of discharge: Pending orders 11/15/17 09:36 US anesthesia pain block [US] Stat 11/17/17 12:36 Culture,Blood [BC] Stat 11/20/17 16:20 Immunoglobulins IgG IgA IgM Routine 11/21/17 13:44 Cholesterol,Body Fluid Stat Triglyceride,Body Fluid Stat 11/21/17 15:26 Venous Doppler [EV venous imaging UE RT] Routine 11/21/17 17:00 LDH [Lactate Dehydrogenase] Routine Total Protein Routine Date of Encounter: 11/21/17 Time of Encounter: 17:30 - Discharge Diagnosis (1) Chest pain Priority: Primary Status: Resolved Qualifiers: Chest pain type: unspecified Qualified Code(s): R07.9 - Chest pain, unspecified (2) Coronary artery disease Priority: Secondary Status: Chronic Qualifiers: Coronary Disease-Associated Artery/Lesion type: bypass graft [place] vs. transplanted heart: [place] heart Associated angina: with other forms of angina Qualified Code(s): I25.708 - Atherosclerosis of coronary artery bypass graft(s), unspecified, with other forms of angina pectoris (3) Essential hypertension Priority: Secondary Status: Chronic (4) Diabetes mellitus, type 2 Priority: Secondary Status: Chronic Qualifiers: Diabetes mellitus long-term insulin use: without terminal superintendent use Diabetes mellitus complication status: without complication Qualified Code(s): E11.9 - Type 2 diabetes mellitus without complications (5) Supracondylar fracture of humerus Priority: Secondary Status: Inactive Qualifiers: Encounter type: initial encounter Fracture type: closed Laterality: left Qualified Code(s): S42.412A - Displaced simple supracondylar fracture without intercondylar fracture of left humerus, initial encounter for closed fracture (6) Decreased urine output Priority: Secondary Status: Resolved (7) DVT prophylaxis Priority: Secondary Status: Acute (8) Pneumonia Priority: Secondary Status: Acute Qualifiers: Pneumonia type: due to unspecified organism Laterality: right Lung location: lower lobe of lung Qualified Code(s): J18.1 - Lobar pneumonia, unspecified organism (9) Hypoxia Priority: Secondary Status: Acute (10) Sepsis Priority: Secondary Status: Acute Qualifiers: Sepsis type: sepsis due to unspecified organism Qualified Code(s): A41.9 - Sepsis, unspecified organism (11) Pleural effusion Priority: Secondary Status: Acute (12) Chylothorax Priority: Secondary Status: Acute Qualifiers: Laterality: unspecified laterality Qualified Code(s): I89.8 - Other specified noninfective disorders of lymphatic vessels and lymph nodes Hospital course: Ms. Boyle is a 82 year old female with PMHx of for hypertension, CAD status post CABG x4, CVA, and Parkinson's disease who recently had a mechanical fall and was admitted due to left humerus fracture. She had left humerus ORIF on . She tolerated procedure well but she did have decreased urine output and hypotension. She was given gentle hydration with IV fluids and blood pressure medications were held. BP and urine output improved briefly. On in the morning patient did develop 8/10 chest pain with hypoxia and require 3 L supplemental oxygen. She developed tachypneia as well and was transferred to step down unit for closer monitoring. A chest x-ray showed right lower lobe opacity with pleural effusion. A CTA was negative for PE but showed acute development of bilateral pleural effusions. She required BIPAP during this time. She was startd on Rocephin and Azithromycin. Urinary antigens obtained. Blood cultures from 11/17 are negative to date. Pulmonology was consulted for thoracentesis. On 11/18 patient had a left thoracentesis done and 1 L of clear yellow fluid drained. Findings were consistent with chylothorax, likely from trauma of fall and/or surgical repair. Pleural triglycerides were 480 mg/dL and cholesterol 66 suggestive of this as well. She was started on octreotide 50 mcg IV qH. Today patient had repeat L sided thoracentesis with about 700 mL chylous fluid drained. Recommended medium chain triglyceride diet. Patient will need lymphangiography to rule out lymphatic leakage, which we cannot do at this facility and she will be transferred to [facility]. Accepting physician will be Dr. Flannery. - Time Spent with Patient Total time spent providing and/or coordinating discharge services: - Discharge Medications Home Medications: Aspirin [Lo-Dose Aspirin EC] 81 mg PO DAILY 08/18/16 [History] Cranberry Conc/Ascorbic Acid [Cranberry Urinary Comfort Sfgl] 1 each PO DAILY [History] Gabapentin [Neurontin] 300 mg PO TID 08/18/16 [History] Levothyroxine Sodium [Levoxyl] 75 mcg PO DAILY 08/18/16 [History] Nitroglycerin [Nitrostat] 0.4 mg SL Q5M 08/18/16 [History] Rivastigmine Tartrate (oral) [Exelon] 1.5 mg PO BID 08/18/16 [History] DiphenhydraMINE [Benadryl] 25 mg PO Q6HR PRN 05/11/17 [History] Ergocalciferol (VITAMIN D2) [Vitamin D] 400 unit PO DAILY 11/15/17 [History] OxyCODONE Immed Rel [Roxicodone 10 MG] 10 mg PO BID PRN 11/15/17 [History] Enoxaparin [Lovenox] 40 mg SQ 0600 syringe 11/21/17 [Rx] Insulin LISPRO [HumaLOG] 0 units SQ HS vial 11/21/17 [Rx] Insulin LISPRO [HumaLOG] 0 units SQ TIDAC vial 11/21/17 [Rx] Ipratropium/Albuterol Neb [Duoneb] 3 ml IH [id number] PRN inhsol 11/21/17 [Rx] Naloxone [Narcan] 0.4 mg IVP Q2MIN PRN inj 11/21/17 [Rx] Octreotide [SandoSTATIN] 50 mcg SQ Q8HR syringe 11/21/17 [Rx] Sennosides/Docusate Sodium [Senna Plus] 1 each PO DAILY PRN tablet 11/21/17 [Rx ] Allergies/Adverse Reactions: 3 Allergy/AdvReac Type Severity Reaction Status Date / Time [id number] Reductase Allergy Intermediate Vomiting Verified 11/15/17 08:51 Inhibitor [Statins] ceci flavor Allergy Rash Verified 11/15/17 08:51 carbidopa [From Sinemet] AdvReac Nausea Verified 11/15/17 08:51 levodopa [From Sinemet] AdvReac Nausea Verified 11/15/17 08:51 pregabalin [From Lyrica] AdvReac see comment Verified 11/15/17 08:51 ranolazine [From Ranexa] AdvReac Palpitation Verified 11/15/17 08:51 s reserpine AdvReac See Verified 11/15/17 08:51 Comments tapentadol [From Nucynta] AdvReac See Verified 11/15/17 08:51 Comments Date of admission: 11/16/17 15:14 Primary care physician: Jena Rloand, Consults: 11/15/17 15:17 Consult to Occupational Therapy [CONS] Routine Comment: Evaluate, develop and implement POC Reason for Consult: Eval and Tx Does patient have active BEDREST order?: No Is patient medically & hemodynamically stable?: Yes Consult to Physical Therapy [CONS] Routine Comment: Evaluate, develop and implement POC Reason for Consult: eval and tx Does patient have active BEDREST order?: No Is patient medically & hemodynamically stable?: Yes 11/15/17 15:48 Consult to Pastoral Services [CONS] Routine Comment: 11/15/17 15:49 Consult to Choir Singer [CONS] Routine Reason for SW Consult: discharge planning 11/16/17 07:07 Consult to Hospitalist [CONS] Routine Consulting Provider: [facility] Rodas Reason for Consult: Low urine output after surgery; General medical managment post op Call Completed: No 11/18/17 08:16 Consult to Pulmonology [CONS] Routine Consulting Provider: [facility] [place] Reason for Consult: Large volume pleural effusion with PNA, for possible diagnostic and therapeutic thoracentensis Call Completed: Yes 11/20/17 14:46 Consult to Invasive Line Access Team [CONS] Routine Reason for Consult: needs line, attempted peripheral unsuccessful. skin edemateous. Line Type: EPIV 11/20/17 15:42 Consult to Nutrition [CONS] Routine Comment: patient needs medium chain triglyceride diet Consulting Provider: NUTRITION Reason for Dietary Consult: PO Supplementation Discharging clinician: Geeta Mcneil - Constitutional Vitals: Temp Pulse Resp BP Pulse Ox 98.3 F 69 18 118/73 98 11/21/17 12:04 11/21/17 16:00 11/21/17 12:04 11/21/17 12:04 11/21/17 12:04 General appearance: Present: A&O X 3, no acute distress Exam: Constitutional: Vitals as noted. Conversant. Not in distress,L arm sling Eyes exam: Sclera white, conjunctiva clear, no lid lag, KARINA. ENT exam: Moist mucus membranes. No JVD, carotid bruit, no cervical lymphadenopathy. no thyromegaly or mass. Respiratory exam: Coarse breath sounds with diminished breath sounds in both lung bases Cardiovascular exam: RRR, +S1, +S2. no murmur, gallop, rubs. No chest wall tenderness GI/Abdominal exam: Soft, Non-tender, Non-distended, normal bowel sounds, soft, no peritoneal signs. no organomegaly or mass appreciated. no hernia. Musculoskeletal exam: full ROM, no atrophy noted. Lt arm sling noted. no edema or cyanosis, warm, pulses palpable and symmetrical in UE/LE. no calf tenderness. Neurological exam: AO X3, CN II-XII grossly intact, grossly normal sensory exam. Increase muscle rigidity. Skin exam: Multiple bruises and ecchymosis. - Patient Status Disposition: Transfer Other Condition: Undetermined Functional capacity at discharge: wheelchair bound Overall status at discharge: patient is not back to baseline - Discharge Instructions Follow Up With: Jena Roland CNP [Primary Care Provider] - - Diet and Activity Activity: as per physical therapy Diet: diabetic diet
[2017-11-21 21:45] VITALS: BP 125/60
[2017-11-23 11:40] LABS: Immunoglobulin A 229 mg/dL (68-408); Immunoglobulin G 384 mg/dL (768-1632); Immunoglobulin M 19 mg/dL (35-263)
== END 2017-11-21 23:12 | disposition other institution (70) | DRG 492 ==
LOC: SAMDAY 07:43 → 3NENU 14:58 → SUATTDRO 11-16 15:14 → 2NNU 11-17 21:20
PROVIDERS: ADMIT Orthopaedic Surgery Hand Surgery; ATTEND Internal Medicine